=== PATIENT | female | born 1955 | race Caucasian/White ===

== ENCOUNTER → 2018-03-26 15:06 | Outpatient (CLI) | payer OTHER, SELFPAY ==
--- NOTE | 2018-03-26 15:07 | DI.MG.S_ITS ---
BILATERAL DIGITAL SCREENING MAMMOGRAM 3D/2D WITH CAD: 03/26/2018 CLINICAL: Routine screening. Family history of breast cancer. Comparison is made to exams dated: 03/24/2017 mammogram, 01/11/2016 mammogram, and 11/17/2014 mammogram - [facility]. There are scattered fibroglandular elements in both breasts. Current study was also evaluated with a Computer Aided Detection (CAD) system. No significant masses, calcifications, or other findings are seen in either breast. There has been no significant interval change. IMPRESSION: NEGATIVE There is no mammographic evidence of malignancy. A 1 year screening mammogram is recommended. This exam was interpreted at Station ID: [id number]. NOTE: For mammograms, a report in lay terms will be sent to the patient. Approximately 15% of breast malignancies will not be visualized mammographically. In the management of a palpable breast mass, a negative mammogram must not discourage biopsy of a clinically suspicious lesion. Electronically Signed By: Aggie castle/andrew:03/27/2018 09:38:15 letter sent: Normal Exam ACR BI-RADS Category 1: Negative 3341F
== END ==
PROVIDERS: PCP Family Medicine; Visit Provider Family Medicine
DX: Z12.31 Encounter for screening mammogram for malignant neoplasm of breast (principal); Z80.3 Family history of malignant neoplasm of breast
CPT/HCPCS: 77063; 77067

== ENCOUNTER → 2019-02-21 13:08 | Outpatient (CLI) | payer OTHER, SELFPAY ==
[2019-02-25 22:36] LABS: Fecal Immunochemical Test NOT DETECTED (NOT DETECTED)
== END ==
PROVIDERS: PCP Family Medicine; Visit Provider Family Medicine
DX: Z12.11 Encounter for screening for malignant neoplasm of colon (principal)
CPT/HCPCS: 82274

== ENCOUNTER → 2019-03-28 17:05 | Outpatient (CLI) | payer OTHER, SELFPAY ==
--- NOTE | 2019-03-28 17:07 | DI.MG.S_ITS ---
BILATERAL DIGITAL SCREENING MAMMOGRAM 3D/2D WITH CAD: 03/28/2019 CLINICAL: Routine screening. Family history of breast cancer. Comparison is made to exams dated: 03/26/2018 mammogram, 03/24/2017 mammogram, and 01/11/2016 mammogram - [facility]. There are scattered fibroglandular elements in both breasts. Current study was also evaluated with a Computer Aided Detection (CAD) system. No significant masses, calcifications, or other findings are seen in either breast. There has been no significant interval change. IMPRESSION: NEGATIVE There is no mammographic evidence of malignancy. A 1 year screening mammogram is recommended. This exam was interpreted at Station ID: [id number]. NOTE: For mammograms, a report in lay terms will be sent to the patient. Approximately 15% of breast malignancies will not be visualized mammographically. In the management of a palpable breast mass, a negative mammogram must not discourage biopsy of a clinically suspicious lesion. Electronically Signed By: Aggie castle/andrew:03/29/2019 07:19:46 letter sent: Normal Exam ACR BI-RADS Category 1: Negative 3341F
== END ==
PROVIDERS: PCP Family Medicine; Visit Provider Family Medicine
DX: Z12.31 Encounter for screening mammogram for malignant neoplasm of breast (principal); Z80.3 Family history of malignant neoplasm of breast
CPT/HCPCS: 77063; 77067

== ENCOUNTER → 2019-06-13 07:50 | Outpatient (CLI) | payer OTHER, SELFPAY ==
[2019-06-13 08:17] LABS: Add Manual Diff / Slide Review NO; Basophils Absolute Auto 100 /uL (0-100); Basophils Percent Auto 1.2 % (0-2); Eosinophils Absolute Auto 200 /uL (0-450); Eosinophils Percent Auto 3.5 % (2-4); Hematocrit 45.9 % (36-46); Hemoglobin 16.1 g/dL (12.0-16.0); Lymphocytes Absolute Auto 1700 /uL (1100-4500); Lymphocytes Percent Auto 30.6 % (25-40); Mean Corpuscular Hemoglobin 32.9 PG (26-34); Mean Corpuscular Volume 94.2 fL (80-100); Monocytes Absolute Auto 300 /uL (0-900); Monocytes Percent Auto 6.1 % (3-14); Neutrophils Absolute Auto 3300 /uL (1500-7000); Neutrophils Percent Auto 58.6 % (50-75); Platelet Count 262 X10^3/uL (150-400); Red Blood Cell Count 4.88 X10^6/uL (4.0-5.2); Red Cell Distribution Width 12.8 % (11.6-14.8); White Blood Cell Count 5.6 X10^3/uL (4.5-11.0)
[2019-06-13 08:53] LABS: Alanine Aminotransferase 29 IU/L (<35); Albumin 4.6 g/dL (3.5-5.0); Albumin Globulin Ratio 1.7 (1.0-2.8); Alkaline Phosphatase 60 U/L (38-126); Aspartate Aminotransferase 25 IU/L (14-36); BUN Creatinine Ratio 26.3 (6-22); Bilirubin Total 0.5 mg/dL (0.2-1.3); Blood Urea Nitrogen 21 mg/dL (7-17); Calcium 9.9 mg/dL (8.4-10.2); Carbon Dioxide 29 mmol/L (22-32); Chloride 101 mmol/L (98-107); Cholesterol 246 mg/dL (140-199); Estimated Glomerular Filt Rate > 60.0 mL/min (>60); Globulin 2.7 g/dL (1.7-4.1); Glucose 188 mg/dL (80-110); HDL Cholesterol 59 mg/dL (40-60); HEMOLYSIS < 15 (0-50); LDL Cholesterol Calculated 152 mg/dL (<100); Potassium 4.3 mmol/L (3.4-5.1); Sodium 139 mmol/L (137-145); Total Protein 7.3 g/dL (6.3-8.2); Triglycerides 176 mg/dL (35-150)
[2019-06-13 09:21] LABS: Thyroid Stimulating Hormone 1.55 uIU/mL (0.47-4.68)
[2019-06-14 10:17] LABS: Hemoglobin A1C% w Est Avg Glu 7.6 % (4.0-6.0)
== END ==
PROVIDERS: Family Medicine; PCP Family Medicine; Referring Provider Family Medicine; Visit Provider Family Medicine
DX: Z51.81 Encounter for therapeutic drug level monitoring (principal); Z13.220 Encounter for screening for lipoid disorders; Z13.29 Encounter for screening for other suspected endocrine disorder; I10 Essential (primary) hypertension; R73.01 Impaired fasting glucose
CPT/HCPCS: 36415; 80053; 80061; 83036; 84443; 85025

== ENCOUNTER → 2020-04-20 17:38 | Outpatient (CLI) | payer OTHER, SELFPAY ==
--- NOTE | 2020-04-20 | DI.MG.S_ITS ---
BILATERAL DIGITAL SCREENING MAMMOGRAM 3D/2D WITH CAD: 04/20/2020 CLINICAL: Routine screening. Family history of breast cancer. Comparison is made to exams dated: 03/28/2019 mammogram, 03/26/2018 mammogram, 03/24/2017 mammogram, 01/11/2016 mammogram, and 11/17/2014 mammogram - [facility]. There are scattered fibroglandular elements in both breasts. Current study was also evaluated with a Computer Aided Detection (CAD) system. No significant masses, calcifications, or other findings are seen in either breast. There has been no significant interval change. IMPRESSION: NEGATIVE There is no mammographic evidence of malignancy. A 1 year screening mammogram is recommended. This exam was interpreted at Station ID: [id number]. NOTE: For mammograms, a report in lay terms will be sent to the patient. Approximately 15% of breast malignancies will not be visualized mammographically. In the management of a palpable breast mass, a negative mammogram must not discourage biopsy of a clinically suspicious lesion. Electronically Signed By: Dave nova/andrew:04/21/2020 07:42:49 letter sent: Normal Exam ACR BI-RADS Category 1: Negative 3341F
== END ==
PROVIDERS: PCP Family Medicine; Referring Provider Family Medicine; Visit Provider Family Medicine
DX: Z12.31 Encounter for screening mammogram for malignant neoplasm of breast (principal); Z80.3 Family history of malignant neoplasm of breast
CPT/HCPCS: 77063; 77067

== ENCOUNTER → 2020-08-14 15:37 | Outpatient (CLI) | payer OTHER, SELFPAY ==
[2020-08-14 16:11] LABS: Add Manual Diff / Slide Review NO; Basophils Absolute Auto 100 /uL (0-100); Basophils Percent Auto 1.2 % (0-2); Eosinophils Absolute Auto 200 /uL (0-450); Eosinophils Percent Auto 2.7 % (2-4); Hematocrit 43.6 % (36-46); Hemoglobin 15.2 g/dL (12.0-16.0); Lymphocytes Absolute Auto 2400 /uL (1100-4500); Lymphocytes Percent Auto 41.9 % (25-40); Mean Corpuscular HGB Conc 34.8 % (30-36); Mean Corpuscular Hemoglobin 32.3 PG (26-34); Mean Corpuscular Volume 92.8 fL (80-100); Monocytes Absolute Auto 300 /uL (0-900); Monocytes Percent Auto 5.1 % (3-14); Neutrophils Absolute Auto 2900 /uL (1500-7000); Neutrophils Percent Auto 49.1 % (50-75); Platelet Count 263 X10^3/uL (150-400); Red Blood Cell Count 4.69 X10^6/uL (4.0-5.2); Red Cell Distribution Width 12.4 % (11.6-14.8); White Blood Cell Count 5.8 X10^3/uL (4.5-11.0)
[2020-08-14 16:25] LABS: Alanine Aminotransferase 32 IU/L (<35); Albumin 4.3 g/dL (3.5-5.0); Albumin Globulin Ratio 1.5 (1.0-2.8); Alkaline Phosphatase 67 U/L (38-126); Aspartate Aminotransferase 26 IU/L (14-36); BUN Creatinine Ratio 19.4 (6-22); Bilirubin Total 0.4 mg/dL (0.2-1.3); Blood Urea Nitrogen 13 mg/dL (7-17); Calcium 9.4 mg/dL (8.4-10.2); Carbon Dioxide 29 mmol/L (22-32); Chloride 98 mmol/L (98-107); Cholesterol 234 mg/dL (140-199); Estimated Glomerular Filt Rate > 60.0 mL/min (>60); Globulin 2.8 g/dL (1.7-4.1); Glucose 190 mg/dL (80-110); HDL Cholesterol 55 mg/dL (40-60); HEMOLYSIS < 15 (0-50); LDL Cholesterol Calculated 140 mg/dL (<100); Potassium 3.2 mmol/L (3.4-5.1); Sodium 135 mmol/L (137-145); Total Protein 7.1 g/dL (6.3-8.2); Triglycerides 195 mg/dL (35-150)
[2020-08-14 16:28] LABS: Hemoglobin A1C% w Est Avg Glu 9.4 % (4.0-6.0)
== END ==
PROVIDERS: PCP Family Medicine; Referring Provider Family Medicine; Visit Provider Family Medicine
DX: E11.9 Type 2 diabetes mellitus without complications (principal); I10 Essential (primary) hypertension
CPT/HCPCS: 36415; 80053; 80061; 83036; 85025

== ENCOUNTER → 2020-12-21 16:54 | Outpatient (CLI) | payer MEDICARE, OTHER, SELFPAY ==
[2020-12-21 17:43] LABS: Alanine Aminotransferase 30 IU/L (<35); Albumin 4.6 g/dL (3.5-5.0); Albumin Globulin Ratio 1.8 (1.0-2.8); Alkaline Phosphatase 60 U/L (38-126); Aspartate Aminotransferase 28 IU/L (14-36); BUN Creatinine Ratio 21.5 (6-22); Bilirubin Total 0.4 mg/dL (0.2-1.3); Blood Urea Nitrogen 14 mg/dL (7-17); Calcium 9.6 mg/dL (8.4-10.2); Carbon Dioxide 28 mmol/L (22-32); Chloride 101 mmol/L (98-107); Cholesterol 209 mg/dL (140-199); Estimated Glomerular Filt Rate > 60.0 mL/min (>60); Globulin 2.6 g/dL (1.7-4.1); Glucose 125 mg/dL (80-110); HDL Cholesterol 60 mg/dL (40-60); HEMOLYSIS < 15 (0-50); LDL Cholesterol Calculated 103 mg/dL (<100); Potassium 3.5 mmol/L (3.4-5.1); Sodium 136 mmol/L (137-145); Total Protein 7.2 g/dL (6.3-8.2); Triglycerides 229 mg/dL (35-150)
[2020-12-21 18:33] LABS: Hemoglobin A1C% w Est Avg Glu 6.9 % (4.0-6.0)
== END ==
PROVIDERS: PCP Family Medicine; Referring Provider Family Medicine; Visit Provider Family Medicine
DX: E11.9 Type 2 diabetes mellitus without complications (principal); I10 Essential (primary) hypertension; E78.2 Mixed hyperlipidemia
CPT/HCPCS: 36415; 80053; 80061; 83036

== ENCOUNTER → 2021-04-21 16:08 | Outpatient (CLI) | payer MEDICARE, OTHER, SELFPAY ==
--- NOTE | 2021-04-21 | DI.MG.S_ITS ---
BILATERAL DIGITAL SCREENING MAMMOGRAM 3D/2D WITH CAD: 04/21/2021 CLINICAL: Routine screening. Family history of breast cancer. Comparison is made to exams dated: 04/20/2020 mammogram, 03/28/2019 mammogram, and 03/26/2018 mammogram - [facility]. There are scattered fibroglandular elements in both breasts. Current study was also evaluated with a Computer Aided Detection (CAD) system. No significant masses, calcifications, or other findings are seen in either breast. There has been no significant interval change. IMPRESSION: NEGATIVE There is no mammographic evidence of malignancy. A 1 year screening mammogram is recommended. This exam was interpreted at Station ID: [id number]. NOTE: For mammograms, a report in lay terms will be sent to the patient. Approximately 15% of breast malignancies will not be visualized mammographically. In the management of a palpable breast mass, a negative mammogram must not discourage biopsy of a clinically suspicious lesion. Electronically Signed By: Roman chauhan/andrew:04/22/2021 11:21:18 letter sent: Normal Exam ACR BI-RADS Category 1: Negative 3341F
== END ==
PROVIDERS: PCP Family Medicine; Referring Provider Family Medicine; Visit Provider Family Medicine
DX: Z12.31 Encounter for screening mammogram for malignant neoplasm of breast (principal); Z80.3 Family history of malignant neoplasm of breast
CPT/HCPCS: 77063; 77067

== ENCOUNTER → 2021-07-31 08:28 | Outpatient (CLI) | payer MEDICARE, OTHER, SELFPAY ==
[2021-07-31 10:24] LABS: Hemoglobin A1C% w Est Avg Glu 7.2 % (4.0-6.0)
[2021-07-31 10:29] LABS: Alanine Aminotransferase 21 IU/L (<35); Albumin 4.3 g/dL (3.5-5.0); Albumin Globulin Ratio 1.7 (1.0-2.8); Alkaline Phosphatase 36 U/L (38-126); Aspartate Aminotransferase 24 IU/L (14-36); BUN Creatinine Ratio 20.3 (6-22); Bilirubin Total 0.6 mg/dL (0.2-1.3); Blood Urea Nitrogen 14 mg/dL (7-17); Calcium 8.9 mg/dL (8.4-10.2); Carbon Dioxide 26 mmol/L (22-32); Chloride 102 mmol/L (98-107); Cholesterol 193 mg/dL (140-199); Estimated Glomerular Filt Rate > 60 mL/min (>60); Globulin 2.6 g/dL (1.7-4.1); Glucose 148 mg/dL (80-110); HDL Cholesterol 55 mg/dL (40-60); HEMOLYSIS 47 (0-50); LDL Cholesterol Calculated 109 mg/dL (<100); Potassium 3.9 mmol/L (3.4-5.1); Sodium 139 mmol/L (137-145); Total Protein 6.9 g/dL (6.3-8.2); Triglycerides 147 mg/dL (35-150)
== END ==
PROVIDERS: PCP Family Medicine; Referring Provider Family Medicine; Visit Provider Family Medicine
DX: E11.9 Type 2 diabetes mellitus without complications (principal); I10 Essential (primary) hypertension; E78.2 Mixed hyperlipidemia
CPT/HCPCS: 36415; 80053; 80061; 83036

== ENCOUNTER → 2022-02-07 14:11 | Outpatient (CLI) | payer MEDICARE, OTHER, SELFPAY ==
[2022-02-07 15:06] LABS: Add Manual Diff / Slide Review NO; Basophils Absolute Auto 100 /uL (0-100); Basophils Percent Auto 0.7 % (0-2); Eosinophils Absolute Auto 200 /uL (0-450); Eosinophils Percent Auto 2.4 % (2-4); Hematocrit 45.9 % (36-46); Hemoglobin 15.6 g/dL (12.0-16.0); Lymphocytes Absolute Auto 1800 /uL (1100-4500); Lymphocytes Percent Auto 18.5 % (25-40); Mean Corpuscular Hemoglobin 31.9 PG (26-34); Mean Corpuscular Volume 93.9 fL (80-100); Monocytes Absolute Auto 500 /uL (0-900); Monocytes Percent Auto 5.6 % (3-14); Neutrophils Absolute Auto 6900 /uL (1500-7000); Neutrophils Percent Auto 72.8 % (50-75); Platelet Count 247 X10^3/uL (150-400); Red Blood Cell Count 4.88 X10^6/uL (4.0-5.2); White Blood Cell Count 9.5 X10^3/uL (4.5-11.0)
[2022-02-07 15:20] LABS: Alanine Aminotransferase 21 IU/L (<35); Albumin 4.4 g/dL (3.5-5.0); Albumin Globulin Ratio 1.4 (1.0-2.8); Alkaline Phosphatase 64 U/L (38-126); Aspartate Aminotransferase 18 IU/L (14-36); BUN Creatinine Ratio 15.9 (6-22); Bilirubin Total 0.5 mg/dL (0.2-1.3); Blood Urea Nitrogen 10 mg/dL (7-17); Calcium 9.3 mg/dL (8.4-10.2); Carbon Dioxide 32 mmol/L (22-32); Chloride 98 mmol/L (98-107); Cholesterol 205 mg/dL (140-199); Estimated Glomerular Filt Rate > 60 mL/min (>60); Globulin 3.1 g/dL (1.7-4.1); Glucose 144 mg/dL (80-110); HDL Cholesterol 59 mg/dL (40-60); HEMOLYSIS < 15 (0-50); LDL Cholesterol Calculated 112 mg/dL (<100); Sodium 136 mmol/L (137-145); Total Protein 7.5 g/dL (6.3-8.2); Triglycerides 170 mg/dL (35-150)
[2022-02-07 15:27] LABS: Hemoglobin A1C% w Est Avg Glu 6.9 % (4.0-6.0)
== END ==
PROVIDERS: PCP Family Medicine; Referring Provider Family Medicine; Visit Provider Family Medicine
DX: E11.9 Type 2 diabetes mellitus without complications (principal); I10 Essential (primary) hypertension; E78.2 Mixed hyperlipidemia
CPT/HCPCS: 36415; 80053; 80061; 83036; 85025

== ENCOUNTER → 2022-04-28 15:52 | Outpatient (CLI) | payer MEDICARE, OTHER, SELFPAY ==
--- NOTE | 2022-04-28 15:53 | DI.MG.S_ITS ---
BILATERAL DIGITAL SCREENING MAMMOGRAM 3D/2D WITH CAD: 04/28/2022 CLINICAL: Routine screening. Family history of breast cancer. Comparison is made to exams dated: 04/21/2021 mammogram, 04/20/2020 mammogram, and 03/28/2019 mammogram - [facility]. There are scattered areas of fibroglandular density in both breasts (category b / 25%-50% glandular tissue). Current study was also evaluated with a Computer Aided Detection (CAD) system. No significant masses, calcifications, or other findings are seen in either breast. There has been no significant interval change. IMPRESSION: NEGATIVE There is no mammographic evidence of malignancy. A 1 year screening mammogram is recommended. Based on the Tyrer Cuzick model (a risk assessment model) the patient's lifetime risk is 9.5% and her 10 year risk is 4.8%. According to the ACR, ACS, and NCCN guidelines, an annual breast MRI exam along with mammogram is recommended if the patient's lifetime risk is 20% or greater. This exam was interpreted at Station ID: [id number]. NOTE: For mammograms, a report in lay terms will be sent to the patient. Approximately 15% of breast malignancies will not be visualized mammographically. In the management of a palpable breast mass, a negative mammogram must not discourage biopsy of a clinically suspicious lesion. Electronically Signed By: Naeem martinez/andrew:04/29/2022 09:02:09 letter sent: Normal Exam ACR BI-RADS Category 1: Negative 3341F
== END ==
PROVIDERS: PCP Family Medicine; Referring Provider Family Medicine; Visit Provider Family Medicine
DX: Z12.31 Encounter for screening mammogram for malignant neoplasm of breast (principal); Z80.3 Family history of malignant neoplasm of breast
CPT/HCPCS: 77063; 77067

== ENCOUNTER → 2023-02-17 14:51 | Outpatient (CLI) | payer MEDICARE, OTHER, SELFPAY ==
[2023-02-17 15:34] LABS: Add Manual Diff / Slide Review NO; Basophils Absolute Auto 100 /uL (0-100); Basophils Percent Auto 0.9 % (0-2); Eosinophils Absolute Auto 200 /uL (0-450); Eosinophils Percent Auto 3.1 % (2-4); Hematocrit 41.3 % (36-46); Hemoglobin 14.3 g/dL (12.0-16.0); Lymphocytes Absolute Auto 2500 /uL (1100-4500); Lymphocytes Percent Auto 41.5 % (25-40); Mean Corpuscular HGB Conc 34.6 % (30-36); Mean Corpuscular Hemoglobin 32.5 PG (26-34); Mean Corpuscular Volume 93.9 fL (80-100); Monocytes Absolute Auto 400 /uL (0-900); Monocytes Percent Auto 6.6 % (3-14); Neutrophils Absolute Auto 2900 /uL (1500-7000); Neutrophils Percent Auto 47.9 % (50-75); Platelet Count 296 X10^3/uL (150-400); Red Blood Cell Count 4.39 X10^6/uL (4.0-5.2); Red Cell Distribution Width 13.3 % (11.6-14.8); White Blood Cell Count 6.1 X10^3/uL (4.5-11.0)
[2023-02-17 15:58] LABS: Hemoglobin A1C% w Est Avg Glu 7.5 % (4.0-6.0)
[2023-02-17 16:07] LABS: Alanine Aminotransferase 18 IU/L (<35); Albumin 4.3 g/dL (3.5-5.0); Albumin Globulin Ratio 1.9 (1.0-2.8); Alkaline Phosphatase 62 U/L (38-126); Aspartate Aminotransferase 21 IU/L (14-36); BUN Creatinine Ratio 22.5 (6-22); Bilirubin Total 0.6 mg/dL (0.2-1.3); Blood Urea Nitrogen 16 mg/dL (7-17); Calcium 9.6 mg/dL (8.4-10.2); Carbon Dioxide 27 mmol/L (22-32); Chloride 99 mmol/L (98-107); Cholesterol 211 mg/dL (140-199); Estimated Glomerular Filt Rate > 60 mL/min (>60); Globulin 2.3 g/dL (1.7-4.1); Glucose 114 mg/dL (80-110); HDL Cholesterol 81 mg/dL (40-60); HEMOLYSIS < 15 (0-50); LDL Cholesterol Calculated 103 mg/dL (<100); Potassium 3.9 mmol/L (3.4-5.1); Sodium 134 mmol/L (137-145); Total Protein 6.6 g/dL (6.3-8.2); Triglycerides 137 mg/dL (35-150)
== END ==
PROVIDERS: PCP Family Medicine; Referring Provider Family Medicine; Visit Provider Family Medicine
DX: Z00.00 Encounter for general adult medical examination without abnormal findings (principal); I10 Essential (primary) hypertension; E11.9 Type 2 diabetes mellitus without complications; E78.2 Mixed hyperlipidemia
CPT/HCPCS: 36415; 80053; 80061; 83036; 85025

== ENCOUNTER → 2023-04-14 14:44 | Outpatient (CLI) | payer MEDICARE, OTHER, SELFPAY ==
--- NOTE | 2023-04-14 14:47 | DI.RAD.S_ITS ---
Bone Density Report Name: JANNETH MURPHY Age: 67 Sex: Female Ethnicity: White Date of : 1955 Indication: postmenopausal; screening for osteoporosis; Referring Provider: POLO CARLISLE Study: Bone densitometry was performed. Exam Date: April 14, 2023 Accession number: [id number] Bone Density: Region BMD T-score Z-score Classification AP Spine(L1-L4) 1.048 0.0 1.9 Normal Femoral Neck (Left) 0.672 -1.6 0.1 Osteopenia Total Hip (Left) 0.697 -2.0 -0.6 Osteopenia Femoral Neck (Right) 0.700 -1.3 0.3 Osteopenia Total Hip (Right) 0.731 -1.7 -0.4 Osteopenia Total Hip Mean 0.714 -1.9 -0.5 Osteopenia World Health Organization criteria for BMD impression classify patients as: Normal (T-score at or above -1.0), Osteopenia (T-score between -1.0 and -2.5), or Osteoporosis (T-score at or below -2.5). 10-year Fracture Risk(1): Major Osteoporotic Fracture 8.3% Hip Fracture 1.8% Reported Risk Factors: [place] (), Neck BMD=0.672, BMI=19.3, smoking (1) FRAX(R) Version 3.08. Fracture probability calculated for an untreated patient. Fracture probability may be lower if the patient has received treatment. Impression: The patient has low bone mass, based on the Left Total Hip T-score. The patient has an estimated ten-year risk of hip fracture of 1.8% and an estimated ten-year risk of major fracture of 8.3%, based on the WHO FRAX algorithm. The patient has risk factors, including: smoking. Discussion: BONE DENSITY IS LOW AT ONE OR MORE SKELETAL SITES. This patient's lowest T-score is low at one or more skeletal sites. It meets the World Health Organization's (WHO) criteria for low bone mass (T-score between -1.0 and -2.5). The patient's 10-year risk of fracture as calculated by FRAX is less than the threshold where pharmacological therapy is recommended by the National Osteoporosis Foundation (NOF). However, all treatment decisions require clinical judgment and consideration of individual patient factors, including patient preferences, comorbidities, previous drug use, risk factors not captured in the FRAX model (e.g., frailty, falls, vitamin D deficiency, increased bone turnover, interval significant decline in bone density) and possible under or overestimation of fracture risk by FRAX. The patient should follow a healthful lifestyle (good nutrition with adequate calcium and vitamin D, and appropriate weight-bearing exercise). Follow-Up: Consider repeating this study in 2 to 3 years to reassess this patient's status, or sooner if there is some new clinical indication. Reported by: ROCKY CAMPOVERDE M.D. on 04/14/2023 4:58:00 PM.
[2023-04-17 16:47] LABS: Fecal Immunochemical Test Negative (Negative)
== END ==
PROVIDERS: PCP Family Medicine; Referring Provider Physician Assistant; Visit Provider Physician Assistant
DX: Z78.0 Asymptomatic menopausal state (principal); Z12.11 Encounter for screening for malignant neoplasm of colon; M85.88 Other specified disorders of bone density and structure, other site
CPT/HCPCS: 77080; 82274

== ENCOUNTER → 2023-05-02 14:41 | Outpatient (CLI) | payer MEDICARE, OTHER, SELFPAY ==
--- NOTE | 2023-05-02 14:43 | DI.MG.S_ITS ---
BILATERAL DIGITAL SCREENING MAMMOGRAM 3D/2D WITH CAD: 05/02/2023 CLINICAL: Routine screening. Family history of breast cancer. Comparison is made to exams dated: 04/28/2022 mammogram, 04/21/2021 mammogram, 04/20/2020 mammogram, 03/28/2019 mammogram, and 03/26/2018 mammogram - [facility]. There are scattered areas of fibroglandular density in both breasts (category b / 25%-50% glandular tissue). Current study was also evaluated with a Computer Aided Detection (CAD) system. No significant masses, calcifications, or other findings are seen in either breast. There has been no significant interval change. IMPRESSION: NEGATIVE There is no mammographic evidence of malignancy. A 1 year screening mammogram is recommended. Based on the Tyrer Cuzick model (a risk assessment model) the patient's lifetime risk is 9.0% and her 10 year risk is 4.8%. According to the ACR, ACS, and NCCN guidelines, an annual breast MRI exam along with mammogram is recommended if the patient's lifetime risk is 20% or greater. This exam was interpreted at Station ID: [id number]. NOTE: For mammograms, a report in lay terms will be sent to the patient. Approximately 15% of breast malignancies will not be visualized mammographically. In the management of a palpable breast mass, a negative mammogram must not discourage biopsy of a clinically suspicious lesion. Electronically Signed By: Ara Juan M.D., PH.D darcy/andrew:05/02/2023 16:59:03 letter sent: Normal Exam ACR BI-RADS Category 1: Negative 3341F
== END ==
PROVIDERS: PCP Family Medicine; Referring Provider Family Medicine; Visit Provider Family Medicine
DX: Z12.31 Encounter for screening mammogram for malignant neoplasm of breast (principal); Z80.3 Family history of malignant neoplasm of breast; R92.323 Mammographic fibroglandular density, bilateral breasts
CPT/HCPCS: 77063; 77067

== ENCOUNTER → 2023-05-24 14:38 | Outpatient (CLI) | payer MEDICARE, OTHER, SELFPAY ==
[2023-05-24 15:44] LABS: Hemoglobin A1C% w Est Avg Glu 6.9 % (4.0-6.0)
[2023-05-24 16:01] LABS: Alanine Aminotransferase 20 IU/L (<35); Albumin 4.5 g/dL (3.5-5.0); Albumin Globulin Ratio 1.7 (1.0-2.8); Alkaline Phosphatase 62 U/L (38-126); Aspartate Aminotransferase 23 IU/L (14-36); BUN Creatinine Ratio 32.4 (6-22); Bilirubin Total 0.6 mg/dL (0.2-1.3); Blood Urea Nitrogen 22 mg/dL (7-17); Calcium 9.5 mg/dL (8.4-10.2); Carbon Dioxide 25 mmol/L (22-32); Chloride 96 mmol/L (98-107); Estimated Glomerular Filt Rate > 60 mL/min (>60); Globulin 2.6 g/dL (1.7-4.1); Glucose 136 mg/dL (80-110); HEMOLYSIS < 15 (0-50); Potassium 3.5 mmol/L (3.4-5.1); Sodium 133 mmol/L (137-145); Total Protein 7.1 g/dL (6.3-8.2)
[2023-05-24 16:51] LABS: Vitamin D 25 Hydroxy (D3) 17.2 ng/mL (30.0-100.0)
== END ==
PROVIDERS: PCP Family Medicine; Referring Provider Family Medicine; Visit Provider Family Medicine
DX: E11.9 Type 2 diabetes mellitus without complications (principal); M85.80 Other specified disorders of bone density and structure, unspecified site; I10 Essential (primary) hypertension; Z78.0 Asymptomatic menopausal state
CPT/HCPCS: 36415; 80053; 82306; 83036

== ENCOUNTER → 2023-11-22 14:51 | Outpatient (CLI) | payer MEDICARE, OTHER, SELFPAY ==
[2023-11-22 16:56] LABS: Add Manual Diff / Slide Review NO; Basophils Absolute Auto 100 /uL (0-100); Basophils Percent Auto 0.9 % (0-2); Eosinophils Absolute Auto 200 /uL (0-450); Eosinophils Percent Auto 3.1 % (2-4); Hemoglobin 14.4 g/dL (12.0-16.0); Lymphocytes Absolute Auto 2400 /uL (1100-4500); Lymphocytes Percent Auto 39.2 % (25-40); Mean Corpuscular HGB Conc 35.1 % (30-36); Mean Corpuscular Hemoglobin 33.1 PG (26-34); Mean Corpuscular Volume 94.1 fL (80-100); Monocytes Absolute Auto 400 /uL (0-900); Monocytes Percent Auto 6.6 % (3-14); Neutrophils Absolute Auto 3000 /uL (1500-7000); Neutrophils Percent Auto 50.2 % (50-75); Platelet Count 292 X10^3/uL (150-400); Red Blood Cell Count 4.35 X10^6/uL (4.0-5.2)
[2023-11-22 17:24] LABS: Alanine Aminotransferase 19 IU/L (<35); Albumin 4.3 g/dL (3.5-5.0); Alkaline Phosphatase 62 U/L (38-126); Aspartate Aminotransferase 23 IU/L (14-36); BUN Creatinine Ratio 22.2 (6-22); Bilirubin Total 0.6 mg/dL (0.2-1.3); Blood Urea Nitrogen 16 mg/dL (7-17); Calcium 9.3 mg/dL (8.4-10.2); Carbon Dioxide 24 mmol/L (22-32); Chloride 102 mmol/L (98-107); Cholesterol 197 mg/dL (140-199); Estimated Glomerular Filt Rate > 60 mL/min (>60); Globulin 2.1 g/dL (1.7-4.1); Glucose 111 mg/dL (80-110); HDL Cholesterol 85 mg/dL (40-60); HEMOLYSIS < 15 (0-50); LDL Cholesterol Calculated 90 mg/dL (<100); Potassium 3.8 mmol/L (3.4-5.1); Sodium 134 mmol/L (137-145); Total Protein 6.4 g/dL (6.3-8.2); Triglycerides 108 mg/dL (35-150)
[2023-11-22 17:29] LABS: Vitamin D 25 Hydroxy (D3) 31.2 ng/mL (30.0-100.0)
[2023-11-22 18:03] LABS: Creatinine Urine Random 96.02 mg/dL
[2023-11-22 18:08] LABS: Microalbumin Urine Random 0.9 mg/dL (0-1.6)
== END ==
PROVIDERS: PCP Family Medicine; Referring Provider Family Medicine; Visit Provider Family Medicine
DX: E11.9 Type 2 diabetes mellitus without complications (principal); E78.2 Mixed hyperlipidemia
CPT/HCPCS: 36415; 80053; 80061; 82043; 82306; 82570; 85025

== ENCOUNTER 2024-04-13 17:53 | Inpatient (IN) | payer MEDICARE, OTHER, SELFPAY ==
[2024-04-13 18:10] VITALS: BP 123/60; PULSE 105; RESP 16; TEMP 37.1; O2SAT 98; BMI 19.3
--- NOTE | 2024-04-13 19:25 | PC.NURSE ---
c/o bilater mcgovern pain denies any injury no apparent injuries noted no redness or swelling, also c/o fatigue
--- NOTE | 2024-04-13 22:10 | ED_ITS ---
HPI - Extremity Problem General Chief complaint: Extremity Problem,Nontraumatic Stated complaint: pain in lower legs Time Seen by Provider: 04/13/24 22:10 Source: patient Mode of arrival: Ambulatory History of Present Illness HPI Narrative: 68-year-old female complains of bilateral anterior mcgovern discomfort since new year's now for the 4th day, no injury, no rash, no posterior pain to the calf, no footwear or new activities, no skin changes or rash or redness. She has no knee area pain or discomfort or effusion symptoms. No pain in her back. No similar symptoms prior. She also has similar duration of dry cough, eating less, feels that she might be dehydrated. She denies fevers or chills. She denies frequency of urination, painful urination, blood in urine. She denies abdominal discomfort, flank pain. She admits to recent cough but denies chest pain or shortness of breath. She is tried Tylenol for the anterior mcgovern discomfort, she has not tried any other therapies. Related Data Previous Rx's Medication Instructions Recorded metformin 500 mg tablet,extended See Rx Instructions .Route 04/25/23 release 24 hr .COMPLEX #360 tabs metoprolol tartrate 50 See Rx Instructions .Route 04/25/23 mg-hydrochlorothiazide 25 mg tablet .COMPLEX #90 tabs Allergies Allergy/AdvReac Type Severity Reaction Status Date / Time atorvastatin [From Lipitor] Allergy myalgia Verified 05/31/23 15:04 Patient History Medical History (Updated 04/14/24 @ 00:47 by Frank Moon MD) Vitamin D deficiency Acquired hammertoes of both feet Osteopenia after menopause At risk for foot problem Sacral region somatic dysfunction Somatic dysfunction of lower extremity Piriformis syndrome of right side Acute right hip pain Type 2 diabetes mellitus without complication Abnormal Pap smear of cervix (~1994) Hypertension Surgical History No history of previous surgery Family History Father No problems noted. Mother No problems noted. Sister Cancer Grandmother Diabetes mellitus Social History household members: spouse Smoking Status: Current every day smoker Tobacco: How many years used: 20 alcohol intake: current Smoking Status: Current every day smoker Exam Narrative Exam Narrative: GENERAL: Well-developed patient, in mild distress. Frequent coughing noted HEAD: Atraumatic. Normocephalic. EYES: Pupils equal round and reactive. Extraocular motions intact. No scleral icterus. No injection or drainage. ENT: Nose without bleeding, purulent drainage. Throat without erythema, tonsillar hypertrophy or exudate. Airway patent. NECK: Trachea midline. Non tender CARDIOVASCULAR: Fast rate with regular rhythm, without obvious murmurs, gallops, or rubs. RESPIRATORY: Clear to auscultation. Breath sounds equal bilaterally. No wheezes, rales, or rhonchi. GASTROINTESTINAL: Abdomen soft, non-tender, nondistended. EXTREMITIES: Bilateral anterior mcgovern region of discomfort shows no obvious swelling or redness or skin lesions, no tenderness on palpation, no discomfort with full range of motion flexion and extension at ankle. No lower extremity edema. No gross deformities. BACK: Nontender without deformity or crepitance. No flank tenderness. NEURO: AOx3. Motor functions grossly nonfocal SKIN: No rash or erythema of visible areas Initial Vital Signs Initial Vital Signs: Vital Signs Temperature 98.8 F 04/13/24 18:10 Pulse Rate 105 H 04/13/24 18:10 Respiratory Rate 16 04/13/24 18:10 Blood Pressure 123/60 04/13/24 18:10 Pulse Oximetry 98 04/13/24 18:10 Oxygen Delivery Method Room Air 04/13/24 18:10 Course Orders Ordered: ED Orders 04/13/24 22:26 XR chest 2V Stat EKG-12 Lead Stat 04/13/24 22:57 CBC Auto Diff [Complete Blood Count AUTO DIFF] Stat CMP [Comprehensive Metabolic Panel] Stat Lactate (Lactic Acid) Stat Magnesium Stat 04/13/24 23:15 Covid-19 + FLU A/B + RSV - PCR Stat 04/14/24 00:18 Urinalysis and Microscopic Stat 04/14/24 00:55 Blood Culture Stat Acetaminophen (Acetaminophen 325 Mg Tablet) 650 mg PO Q6H PRN PRN Reason: Fever/Mild Pain (1-3) Hydrocodone Bitart/Acetaminophen (Hydrocodone/Acet 5/325 Tablet) 1 tab PO Q4H PRN PRN Reason: Pain, Moderate (4-6) Heparin Sodium (Porcine) (Heparin 5,000 Unit/Ml Vial) 5,000 unit SUBCUT BID LAMINE Sodium Chloride (Normal Saline 0.9%) 1,000 mls @ 75 mls/hr IV CONT LAMINE Last Admin: 04/14/24 02:40 Dose: 75 mls/hr Documented By: Ceftriaxone Sodium 1,000 mg/ (Sodium Chloride) 100 mls @ 200 mls/hr IV BEDTIME LAMINE Doxycycline Hyclate 100 mg/ (Sodium Chloride) 100 mls @ 100 mls/hr IV Q12H LAMINE Dextrose (D10w) 100 mls @ 999 mls/hr IV PRN PRN PRN Reason: Hypoglycemia Insulin Glargine (Insulin Glargine 100 Unit/Ml 3ml Pen) 20 unit SUBCUT 0800 LAMINE Insulin Human Lispro (Insulin Lispro 100 Unit/Ml 3ml Vial) 0 unit SUBCUT ACHS LAMINE; Protocol Naloxone HCl (Naloxone 0.4 Mg/Ml Vial) 0.2 mg IV Q2MIN PRN PRN Reason: Opiate Reversal Ondansetron HCl (Ondansetron 4 Mg/2 Ml Inj) 4 mg IV Q8HR PRN PRN Reason: Nausea And Vomiting Discontinued Medications Doxycycline Hyclate (Doxycycline Hyclate 100 Mg Tablet) 100 mg PO NOW ONE Stop: 04/14/24 00:35 Last Admin: 04/14/24 01:20 Dose: 100 mg Documented By: SYDNI Sodium Chloride (Normal Saline 0.9%) 1,000 mls @ 1,000 mls/hr IV BOLUS ONE Stop: 04/13/24 23:24 Last Infusion: 04/13/24 23:57 Dose: Infused Documented By: Admin: 04/13/24 22:46 Dose: 1,000 mls/hr Documented By: SYDNI Magnesium Sulfate (Magnesium Sulfate) 2 gm in 50 mls @ 150 mls/hr IV NOW ONE Stop: 04/13/24 23:58 Last Infusion: 04/14/24 00:18 Dose: Infused Documented By: SYDNI Co-signed By: DEMARCUS Admin: 04/13/24 23:53 Dose: 150 mls/hr Documented By: SYDNI Co-signed By: DEMARCUS Ceftriaxone Sodium 1,000 mg/ (Sodium Chloride) 100 mls @ 200 mls/hr IV NOW ONE Stop: 04/14/24 00:35 Last Infusion: 04/14/24 01:57 Dose: Infused Documented By: Admin: 04/14/24 01:21 Dose: 200 mls/hr Documented By: SYDNI POTASSIUM CHLORIDE IN WATER (Potassium Cl 10 Meq/100 Ml Nohemi) 10 meq in 100 mls @ 100 mls/hr IV Q1H LAMINE Stop: 04/14/24 02:44 Last Infusion: 04/14/24 01:57 Dose: 100 mls/hr Documented By: Admin: 04/14/24 01:51 Dose: 100 mls/hr Documented By: Infusion: 04/14/24 01:51 Dose: Infused Documented By: Admin: 04/14/24 01:01 Dose: 100 mls/hr Documented By: SYDNI Sodium Chloride (Normal Saline 0.9%) 1,000 mls @ 1,000 mls/hr IV BOLUS ONE Stop: 04/14/24 01:36 Last Infusion: 04/14/24 01:58 Dose: 1,000 mls/hr Documented By: Admin: 04/14/24 00:58 Dose: 1,000 mls/hr Documented By: SYDNI Ketorolac Tromethamine (Ketorolac 30 Mg/Ml Vial) 15 mg IV NOW ONE Stop: 04/13/24 22:25 Last Admin: 04/13/24 22:45 Dose: 15 mg Documented By: SYDNI Potassium Chloride (Potassium Chloride 20 Meq/15 Ml Udc) 40 meq PO NOW ONE Stop: 04/13/24 23:36 Last Admin: 04/13/24 23:51 Dose: 40 meq Documented By: SYDNI Potassium Chloride (Potassium Chloride 20 Meq/15 Ml Udc) 40 meq PO NOW ONE Stop: 04/14/24 05:01 Vital Signs Vital signs: Vital Signs - 8 hr 04/13/24 22:46 04/13/24 22:58 04/13/24 22:58 Pulse Rate 128 H 126 H Blood Pressure 107/55 L Pulse Oximetry 94 93 Oxygen Delivery Method 04/13/24 23:00 04/13/24 23:30 04/13/24 23:30 Pulse Rate 125 H 115 H Blood Pressure 96/51 L Pulse Oximetry 95 94 Oxygen Delivery Method 04/14/24 00:00 04/14/24 00:00 04/14/24 00:04 Pulse Rate 115 H 109 H Blood Pressure 88/55 L Pulse Oximetry 94 93 Oxygen Delivery Method Room Air 04/14/24 00:04 Pulse Rate Blood Pressure 91/55 L Pulse Oximetry Oxygen Delivery Method MDM - Extremity (Nontraumatic) Lab Data 04/14/24 04:25 04/13/24 22:57 Labs: Lab Results 04/13/24 04/13/24 04/14/24 Range/Units 22:57 23:15 00:18 WBC 27.2 H (4.5-11.0) X10^3/uL RBC 4.43 (4.0-5.2) X10^6/uL Hgb 14.1 (12.0-16.0) g/dL Hct 41.5 (36-46) % MCV 93.6 (80-100) fL MCH 31.7 (26-34) PG MCHC 33.9 (30-36) % RDW 12.9 (11.6-14.8) % Plt Count 336 (150-400) X10^3/uL Neut % (Auto) Not Reportable Lymph % (Auto) Not Reportable [place] % (Auto) Not Reportable Eos % (Auto) Not Reportable Baso % (Auto) Not Reportable Lymph # (Auto) Not Reportable [place] # (Auto) Not Reportable Baso # (Auto) Not Reportable Total Counted 100 Seg Neutrophils % 86.0 H (38-70) % Band Neutrophils % 4.0 (3-7) % Lymphocytes % (Manual) 7.0 L (25-45) % Monocytes % (Manual) 3.0 (2-11) % Neutrophils # (Manual) 06780 H (0197-3155) /uL RBC Morphology Normal morphology Sodium 125 L (137-145) mmol/L Potassium 2.6 L* (3.4-5.1) mmol/L Chloride 87 L (98-107) mmol/L Carbon Dioxide 31 (22-32) mmol/L BUN 10 (7-17) mg/dL Creatinine 0.45 L (0.52-1.04) mg/dL Estimated GFR > 60 (>60) mL/min BUN/Creatinine Ratio 22.2 H (6-22) Glucose 247 H (80-110) mg/dL Lactate 2.1 (0.7-2.1) mmol/L Calcium 8.5 (8.4-10.2) mg/dL Magnesium 1.3 L (1.6-2.3) mg/dL Total Bilirubin 0.5 (0.2-1.3) mg/dL AST 32 (14-36) IU/L ALT 35 H (<35) IU/L Alkaline Phosphatase 143 H (38-126) U/L Total Protein 6.8 (6.3-8.2) g/dL Albumin 3.6 (3.5-5.0) g/dL Globulin 3.2 (1.7-4.1) g/dL Albumin/Globulin Ratio 1.1 (1.0-2.8) Urine Color Yellow Urine Appearance Clear Urine pH 6.0 (4.5-8.0) Ur Specific [place] <=1.005 (1.000-1.035) Urine Protein Negative (Negative) Urine Glucose (UA) 1+ H (Negative) g/dL Urine Ketones Negative (NEGATIVE) Urine Occult Blood Trace-intact (Negative) Urine Nitrate Negative (Negative) Urine Bilirubin Negative (NEGATIVE) Urine Urobilinogen 0.2 (0.2) E.U./dL Ur Leukocyte Esterase Trace H (NEGATIVE) Urine RBC 0-1/hpf (0-5/HPF) Urine WBC 1-5/hpf (0-5/HPF) Ur Squamous Epith Cells 1-5 /hpf (0-5/HPF) Urine Bacteria Moderate (10-30) H (None) Urine Mucus 2+ H (Negative) Ur Culture Indicated? Cult not indicated Vol Urine Centrifuged 10ml (spun) SARS-CoV-2 (PCR) Negative (Negative) Influenza A (RT-PCR) Flu a negative (NEGATIVE) Influenza B (RT-PCR) Flu b negative (NEGATIVE) RSV (PCR) Negative (Negative) 04/14/24 Range/Units 01:00 WBC (4.5-11.0) X10^3/uL RBC (4.0-5.2) X10^6/uL Hgb (12.0-16.0) g/dL Hct (36-46) % MCV (80-100) fL MCH (26-34) PG MCHC (30-36) % RDW (11.6-14.8) % Plt Count (150-400) X10^3/uL Neut % (Auto) Lymph % (Auto) [place] % (Auto) Eos % (Auto) Baso % (Auto) Lymph # (Auto) [place] # (Auto) Baso # (Auto) Total Counted Seg Neutrophils % (38-70) % Band Neutrophils % (3-7) % Lymphocytes % (Manual) (25-45) % Monocytes % (Manual) (2-11) % Neutrophils # (Manual) (6200-3442) /uL RBC Morphology Sodium (137-145) mmol/L Potassium (3.4-5.1) mmol/L Chloride (98-107) mmol/L Carbon Dioxide (22-32) mmol/L BUN (7-17) mg/dL Creatinine (0.52-1.04) mg/dL Estimated GFR (>60) mL/min BUN/Creatinine Ratio (6-22) Glucose (80-110) mg/dL Lactate 2.0 (0.7-2.1) mmol/L Calcium (8.4-10.2) mg/dL Magnesium (1.6-2.3) mg/dL Total Bilirubin (0.2-1.3) mg/dL AST (14-36) IU/L ALT (<35) IU/L Alkaline Phosphatase (38-126) U/L Total Protein (6.3-8.2) g/dL Albumin (3.5-5.0) g/dL Globulin (1.7-4.1) g/dL Albumin/Globulin Ratio (1.0-2.8) Urine Color Urine Appearance Urine pH (4.5-8.0) Ur Specific [place] (1.000-1.035) Urine Protein (Negative) Urine Glucose (UA) (Negative) g/dL Urine Ketones (NEGATIVE) Urine Occult Blood (Negative) Urine Nitrate (Negative) Urine Bilirubin (NEGATIVE) Urine Urobilinogen (0.2) E.U./dL Ur Leukocyte Esterase (NEGATIVE) Urine RBC (0-5/HPF) Urine WBC (0-5/HPF) Ur Squamous Epith Cells (0-5/HPF) Urine Bacteria (None) Urine Mucus (Negative) Ur Culture Indicated? Vol Urine Centrifuged SARS-CoV-2 (PCR) (Negative) Influenza A (RT-PCR) (NEGATIVE) Influenza B (RT-PCR) (NEGATIVE) RSV (PCR) (Negative) Imaging Data Chest x-ray: Radiologist's Impression: [address] [address] XRay Report Signed Patient: April Vallejo MR#: [id number] : 1955 Acct:[id number] Age/Sex: 68 / F Date of Service: 04/13/24 Loc: ED Accession Number: [id number] Procedure: XR chest 2V Ordering Provider: Frank Moon MD PROCEDURE: XR CHEST 2V INDICATIONS: cough, tachycardia TECHNIQUE: 2 views of the chest were acquired. COMPARISON: None. FINDINGS: Surgical changes and devices: None. Lungs and pleura: Dense parenchymal opacity in the anterior right mid lung. The left lung is clear. No significant pleural effusions seen. Mediastinum: Mediastinal contours are normal. Heart size is normal. Bones and chest wall: No suspicious bony abnormalities. Soft tissues appear unremarkable. IMPRESSION: Left anterior mid lung density suggesting pneumonia although postobstructive atelectasis cannot be excluded. Recommend follow-up following appropriate treatment. Dictated by: Osiris Dobbs M.D. on 04/13/2024 at 23:00 Approved by: Osiris Dobbs M.D. on 04/13/2024 at 23:01 ECG Data Interpretation: 2254, sinus tachycardia with ventricular rate 125, some motion artifact, no obvious ST segment elevation changes. HI 174, QRS 72, QTC 427. [facility] Narrative Medical decision making narrative: 68-year-old female with presenting complaint bilateral anterior atraumatic foreleg pain. No fever on triage. On examination seems to not have any tenderness to the anterior foreleg, there is no rash or redness, there is no discomfort with range of motion of the ankle or with plantar flexion/dorsiflexion of the ankle, nor movements of the knee. She has recent cough, tachycardia on examination. We will send EKG, chest x-ray, labs, COVID/flu swab. No ultrasound imaging warranted for lower extremities at this time, no x-rays warranted for forelegs at this time. Patient feels dehydrated, we will give IV bolus pending labs. Tylenol tried at home which is not helping, IV Toradol suggested, she is amenable, ordered. Await laboratory study results, and response to NSAID and fluids. Potassium 2.6, IV potassium, oral potassium. Magnesium also low, IV magnesium repletion ordered. IV Toradol, pain seems to be less intense White blood cell count 39905, blood cultures requested. Urinalysis pending. Chest x-ray shows left anterior density possible pneumonia, see radiology report. We will give IV ceftriaxone, oral doxycycline for community-acquired pneumonia coverage, should cover urinary tract infection if relevant once urinalysis obtained. Urinalysis shows bacteriuria, urine culture requested. Persistent tachycardia, significant electrolyte abnormalities, leukocytosis, possible pneumonia, consider admission. Patient agreeable 0100, case discussed with hospitalist Dr. Duckworth, who accepts patient for admission to inpatient service Critical Care Time Critical Care Time Critical Care Time: Yes Total Critical Care Time: 35 Attestation: The high probability of a clinically significant, sudden or life threatening deterioration of the [orthopedic, genitourinary, cardiopulmonary, metabolic] systems required my full and direct attention, intervention and personal management. The aggregate critical care time was [35] minutes. This time is in addition to time spent performing reported procedures but includes the following: [x] Data Review and interpretation [x] Patient assessment and monitoring of vital signs [x] Documentation [x] Medication orders and management Discharge Plan Departure Patient Disposition: Admitted As Inpatient Clinical Impression: Pain in the shins, Tachycardia, Hypokalemia, Hypomagnesemia, Leukocytosis, Pneumonia, Urinary tract infection Admit Date/Time: 04/14/24 01:10 Admit Provider: Pete Duckworth
--- NOTE | 2024-04-13 22:26 | DI.RAD.S_ITS ---
PROCEDURE: XR CHEST 2V INDICATIONS: cough, tachycardia TECHNIQUE: 2 views of the chest were acquired. COMPARISON: None. FINDINGS: Surgical changes and devices: None. Lungs and pleura: Dense parenchymal opacity in the anterior right mid lung. The left lung is clear. No significant pleural effusions seen. Mediastinum: Mediastinal contours are normal. Heart size is normal. Bones and chest wall: No suspicious bony abnormalities. Soft tissues appear unremarkable. IMPRESSION: Left anterior mid lung density suggesting pneumonia although postobstructive atelectasis cannot be excluded. Recommend follow-up following appropriate treatment. Dictated by: Osiris Dobbs M.D. on 04/13/2024 at 23:00 Approved by: Osiris Dobbs M.D. on 04/13/2024 at 23:01
[2024-04-13] MEDS: KETOROLAC 30 MG/ML VIAL 15 MG IV (22:45)
[2024-04-13 22:46] VITALS: PULSE 128; O2SAT 94
[2024-04-13] MEDS: SODIUM CHLORIDE 0.9% 1,000 ML 1000 ML IV (22:46)
--- NOTE | 2024-04-13 22:54 | EKG_ITS ---
[place] [id number] [place] [id number] Test Date: 2024-04-13 Pat Name: April Vallejo Department: [facility] Room: Gender: Female [employer] Lead: : 1955 Requested By: Order Number: [id number] Reading MD: Zion Mendoza Measurements Intervals [place] Rate: 125 P: 75 GA: 174 QRS: 73 QRSD: 72 T: 63 QT: 296 QTc: 427 Interpretive Statements Sinus tachycardia Biatrial enlargement Septal infarct , age undetermined Electronically Signed On 04-14-2024 14:32:20 PST by Zion Mendoza
[2024-04-13 22:58] VITALS: BP 107/55; PULSE 126; O2SAT 93
[2024-04-13 23:00] VITALS: PULSE 125; O2SAT 95
[2024-04-13 23:15] LABS: Hematocrit 41.5 % (36-46); Hemoglobin 14.1 g/dL (12.0-16.0); Mean Corpuscular HGB Conc 33.9 % (30-36); Mean Corpuscular Hemoglobin 31.7 PG (26-34); Mean Corpuscular Volume 93.6 fL (80-100); Platelet Count 336 X10^3/uL (150-400); Red Blood Cell Count 4.43 X10^6/uL (4.0-5.2); Red Cell Distribution Width 12.9 % (11.6-14.8); White Blood Cell Count 27.2 X10^3/uL (4.5-11.0)
[2024-04-13 23:19] LABS: Add Manual Diff / Slide Review YES
[2024-04-13 23:20] LABS: Alanine Aminotransferase 35 IU/L (<35); Albumin 3.6 g/dL (3.5-5.0); Albumin Globulin Ratio 1.1 (1.0-2.8); Alkaline Phosphatase 143 U/L (38-126); Aspartate Aminotransferase 32 IU/L (14-36); BUN Creatinine Ratio 22.2 (6-22); Bilirubin Total 0.5 mg/dL (0.2-1.3); Blood Urea Nitrogen 10 mg/dL (7-17); Calcium 8.5 mg/dL (8.4-10.2); Carbon Dioxide 31 mmol/L (22-32); Chloride 87 mmol/L (98-107); Estimated Glomerular Filt Rate > 60 mL/min (>60); Globulin 3.2 g/dL (1.7-4.1); Glucose 247 mg/dL (80-110); Lactate (Lactic Acid) 2.1 mmol/L (0.7-2.1); Magnesium 1.3 mg/dL (1.6-2.3); Sodium 125 mmol/L (137-145); Total Protein 6.8 g/dL (6.3-8.2)
[2024-04-13 23:27] LABS: HEMOLYSIS 18 (0-50)
[2024-04-13 23:30] VITALS: BP 96/51; PULSE 115; O2SAT 94
[2024-04-13 23:33] LABS: Potassium 2.6 mmol/L (3.4-5.1)
[2024-04-13 23:50] LABS: Neutrophils Absolute Manual 24480 /uL (3000-5900); RBC Morphology Normal Morphology; Total Cells Counted 100
[2024-04-13] MEDS: POTASSIUM CHLORIDE 20 MEQ/15 ML UDC 40 MEQ PO (23:51)
[2024-04-13] MEDS: MAGNESIUM SULFATE 2 GM/50 ML PIGGYBACK IV (23:53)
[2024-04-14] VITALS (10 sets, daily range): BP systolic 88–133; BP diastolic 55–71; PULSE 98–124; RESP 16–19; TEMP 36.1–37.1; O2SAT 93–99; BMI 19.3
[2024-04-14 00:33] LABS: Influenza A - CEPHEID Flu A NEGATIVE (NEGATIVE); Influenza B - CEPHEID Flu B NEGATIVE (NEGATIVE); Respiratory Syncytial Virus Negative (Negative)
[2024-04-14 00:36] LABS: Appearance Urine UA CLEAR; Bilirubin Urine UA NEGATIVE (NEGATIVE); Color Urine UA YELLOW; Glucose Urine UA 1+ g/dL (Negative); Ketones Urine UA NEGATIVE (NEGATIVE); Leukocyte Esterase Urine UA TRACE (NEGATIVE); Nitrite Urine UA NEGATIVE (Negative); Occult Blood Urine UA TRACE-INTACT (Negative); Protein Urine UA NEGATIVE (Negative); Specific Gravity Urine UA <=1.005 (1.000-1.035); Urobilinogen Urine UA 0.2 E.U./dL (0.2)
[2024-04-14 00:39] LABS: COVID-19 CEPHEID 4-PLEX PCR Negative (Negative)
[2024-04-14 00:40] LABS: Reflexed Lactate in 2 Hours Y
[2024-04-14 00:43] LABS: Bacteria Urine Moderate (10-30); Mucus Urine 2+ (Negative); RBC Urine 0-1/HPF (0-5/HPF); Squamous Epithelial Cell Urine 1-5 /HPF (0-5/HPF); Urine Volume 10mL (spun)
[2024-04-14 00:44] LABS: WBC Urine 1-5/HPF (0-5/HPF)
[2024-04-14 00:45] LABS: Culture Indicated Urine Cult Not Indicated
[2024-04-14] MEDS: SODIUM CHLORIDE 0.9% 1,000 ML 1000 ML IV (00:58)
[2024-04-14] MEDS: POTASSIUM CHLORIDE IN WATER 10 MEQ/100 ML PIGGYBACK 100 MEQ IV ×2 (01:01→01:51)
[2024-04-14] MEDS: DOXYCYCLINE HYCLATE 100 MG TABLET PO (01:20)
[2024-04-14] MEDS: cefTRIAXone 1,000 MG in SODIUM CHLORIDE 0.9% 100 ML 200 MG IV ×2 (01:21→20:54)
[2024-04-14] MEDS: SODIUM CHLORIDE 0.9% 1,000 ML 75 ML IV ×2 (02:40→16:58)
--- NOTE | 2024-04-14 03:40 | P.HP_ITS ---
History of Present Illness History of Present Illness Chief complaint: pain in lower legs Narrative: 68 year old female with past medical history of NIDDM and HTN presents with bilateral mcgovern discomfort. Per the patient's report, over the last four days, the patient started to noticed increasing dry coughing poor appeitite and feels dehydrated. The patient also noted very strange anterior bilateral mcgovern discomfort but denies any injury to her mcgovern or LEs. The patient denies any calf pain. The patient did try some tylenol for her mcgovern pain with minimal improvement. The patient otherwise denies any fever, chills, nausea, vomiting or diarrhea. The patient also denies any chest pain or shortness of breath. In our ER, the patient was tachycardic but hemodynamically stable. The patient WBC was 27, sodim 125, potassium 2.6, magneseium 1.3. and glucose of 247. The patient CXR shows possible pneumonia and urine shows bacteriuria. The patient was given IV Ceftriaxone, Doxycycline, Magnesium and potassium replacement and NS. Note the patient was not septic. [facility] Medical History (Updated 04/14/24 @ 00:47 by Frank Moon MD) Vitamin D deficiency Acquired hammertoes of both feet Osteopenia after menopause At risk for foot problem Sacral region somatic dysfunction Somatic dysfunction of lower extremity Piriformis syndrome of right side Acute right hip pain Type 2 diabetes mellitus without complication Abnormal Pap smear of cervix (~1994) Hypertension Surgical History No history of previous surgery Family History Father No problems noted. Mother No problems noted. Sister Cancer Grandmother Diabetes mellitus Social History household members: spouse Smoking Status: Current every day smoker Tobacco: How many years used: 20 alcohol intake: current Meds Home Medications and Allergies Home Medications Medication Instructions Recorded Confirmed Type metformin 500 mg tablet,extended See Rx Instructions .Route 04/25/23 04/14/24 Rx release 24 hr .COMPLEX #360 tabs metoprolol tartrate 50 See Rx Instructions .Route 04/25/23 04/14/24 Rx mg-hydrochlorothiazide 25 mg tablet .COMPLEX #90 tabs Allergies Allergy/AdvReac Type Severity Reaction Status Date / Time atorvastatin [From Lipitor] Allergy myalgia Verified 05/31/23 15:04 Review of Systems Review of Systems ROS: Yes All systems reviewed with the patient and are negative except as otherwise documented Exam Vital Signs (past 8 hours): - 04/13/24 22:46 04/13/24 22:58 04/13/24 22:58 Temperature Pulse Rate 128 H 126 H Respiratory Rate Blood Pressure 107/55 L Pulse Oximetry 94 93 Oxygen Delivery Method 04/13/24 23:00 04/13/24 23:30 04/13/24 23:30 Temperature Pulse Rate 125 H 115 H Respiratory Rate Blood Pressure 96/51 L Pulse Oximetry 95 94 Oxygen Delivery Method 04/14/24 00:00 04/14/24 00:00 04/14/24 00:04 Temperature Pulse Rate 115 H 109 H Respiratory Rate Blood Pressure 88/55 L Pulse Oximetry 94 93 Oxygen Delivery Method Room Air 04/14/24 00:04 04/14/24 01:29 04/14/24 01:29 Temperature Pulse Rate 103 H Respiratory Rate 16 Blood Pressure 91/55 L 124/65 Pulse Oximetry 98 Oxygen Delivery Method 04/14/24 01:30 04/14/24 02:17 Temperature 97.9 F Pulse Rate 104 H 106 H Respiratory Rate 16 17 Blood Pressure 133/63 Pulse Oximetry 99 98 Oxygen Delivery Method Oxygen Delivery Method Room Air Narrative Exam Narrative: Physical Exam: GENERAL: The patient is not in any acute distressed. Awake and alert. HEENT: Nonicteric sclerae, PERRLA, EOMI. Oropharynx clear. Moist mucous membranes. Conjunctivae appear well perfused. HEART: Regular rate and rhythm without murmurs. No lower extremities edema. LUNGS: Clear to auscultation bilaterally. No wheezing, crackles or rhonchi ABDOMEN: Soft, positive bowel sounds, nontender. SKIN: No rash, no excessive bruising, petechiae, or purpura. NEUROLOGIC: AxO x 3. Cranial nerves II-XII intact without motor/sensory deficit. Objective Labs 04/13/24 22:57 04/13/24 22:57 Labs: Laboratory Results - last 24 hr 04/13/24 04/13/24 04/14/24 22:57 23:15 00:18 WBC 27.2 H RBC 4.43 Hgb 14.1 Hct 41.5 MCV 93.6 MCH 31.7 MCHC 33.9 RDW 12.9 Plt Count 336 Neut % (Auto) Not Reportable Lymph % (Auto) Not Reportable [place] % (Auto) Not Reportable Eos % (Auto) Not Reportable Baso % (Auto) Not Reportable Lymph # (Auto) Not Reportable [place] # (Auto) Not Reportable Baso # (Auto) Not Reportable Total Counted 100 Seg Neutrophils % 86.0 H Band Neutrophils % 4.0 Lymphocytes % (Manual) 7.0 L Monocytes % (Manual) 3.0 Neutrophils # (Manual) 26037 H RBC Morphology Normal morphology Sodium 125 L Potassium 2.6 L* Chloride 87 L Carbon Dioxide 31 BUN 10 Creatinine 0.45 L Estimated GFR > 60 BUN/Creatinine Ratio 22.2 H Glucose 247 H Lactate 2.1 Calcium 8.5 Magnesium 1.3 L Total Bilirubin 0.5 AST 32 ALT 35 H Alkaline Phosphatase 143 H Total Protein 6.8 Albumin 3.6 Globulin 3.2 Albumin/Globulin Ratio 1.1 Urine Color Yellow Urine Appearance Clear Urine pH 6.0 Ur Specific [place] <=1.005 Urine Protein Negative Urine Glucose (UA) 1+ H Urine Ketones Negative Urine Occult Blood Trace-intact Urine Nitrate Negative Urine Bilirubin Negative Urine Urobilinogen 0.2 Ur Leukocyte Esterase Trace H Urine RBC 0-1/hpf Urine WBC 1-5/hpf Ur Squamous Epith Cells 1-5 /hpf Urine Bacteria Moderate (10-30) H Urine Mucus 2+ H Ur Culture Indicated? Cult not indicated Vol Urine Centrifuged 10ml (spun) SARS-CoV-2 (PCR) Negative Influenza A (RT-PCR) Flu a negative Influenza B (RT-PCR) Flu b negative RSV (PCR) Negative 04/14/24 01:00 WBC RBC Hgb Hct MCV MCH MCHC RDW Plt Count Neut % (Auto) Lymph % (Auto) [place] % (Auto) Eos % (Auto) Baso % (Auto) Lymph # (Auto) [place] # (Auto) Baso # (Auto) Total Counted Seg Neutrophils % Band Neutrophils % Lymphocytes % (Manual) Monocytes % (Manual) Neutrophils # (Manual) RBC Morphology Sodium Potassium Chloride Carbon Dioxide BUN Creatinine Estimated GFR BUN/Creatinine Ratio Glucose Lactate 2.0 Calcium Magnesium Total Bilirubin AST ALT Alkaline Phosphatase Total Protein Albumin Globulin Albumin/Globulin Ratio Urine Color Urine Appearance Urine pH Ur Specific [place] Urine Protein Urine Glucose (UA) Urine Ketones Urine Occult Blood Urine Nitrate Urine Bilirubin Urine Urobilinogen Ur Leukocyte Esterase Urine RBC Urine WBC Ur Squamous Epith Cells Urine Bacteria Urine Mucus Ur Culture Indicated? Vol Urine Centrifuged SARS-CoV-2 (PCR) Influenza A (RT-PCR) Influenza B (RT-PCR) RSV (PCR) Assessment & Plan Assessment & Plan narrative: Possible Pneumonia and UTI. Admit the patient to medical inpatient. Continue IV Ceftriaxone and Doxycycline. Monitor for sepsis. Patient is stable at this point. Follow up cultures drawn in ER. Discomfort in bilateral mcgovern. Note patient states that her symptoms now improve with IV fluid and replacement of electrolytes. Hyponatremia. Likely from dehydration. NS and monitor sodium level. Currently sodium is 125. Hypokalemia. Replace and monitor. Hypomagnesemia. Replace and monitor. Dehydration. IVF. NIDDM. Hold home Metformin. Start SQ insulin and monitor glucose closely. DVT PPx hep SQ Code status full code Disposition home in 2 days Time-Based Coding :: [TOTAL MINUTES] spent with patient and on the chart (including review of chart, obtaining history, exam, reviewing outside data, placing orders, documenting exam and treatment plan, and counseling patient) on [DATE]. Quality VTE Deep Vein Thrombosis/Pulmonary Embolism Present on Admission: No
[2024-04-14 04:47] LABS: Add Manual Diff / Slide Review NO; Basophils Absolute Auto 100 /uL (0-100); Basophils Percent Auto 0.5 % (0-2); Eosinophils Absolute Auto 0 /uL (0-450); Eosinophils Percent Auto 0.2 % (2-4); Hematocrit 35.4 % (36-46); Hemoglobin 12.1 g/dL (12.0-16.0); Lymphocytes Absolute Auto 1400 /uL (1100-4500); Lymphocytes Percent Auto 6.3 % (25-40); Mean Corpuscular HGB Conc 34.2 % (30-36); Mean Corpuscular Hemoglobin 31.8 PG (26-34); Mean Corpuscular Volume 92.9 fL (80-100); Monocytes Absolute Auto 500 /uL (0-900); Monocytes Percent Auto 2.3 % (3-14); Neutrophils Absolute Auto 20200 /uL (1500-7000); Neutrophils Percent Auto 90.7 % (50-75); Platelet Count 305 X10^3/uL (150-400); Red Blood Cell Count 3.81 X10^6/uL (4.0-5.2); Red Cell Distribution Width 12.9 % (11.6-14.8); White Blood Cell Count 22.2 X10^3/uL (4.5-11.0)
[2024-04-14 05:06] LABS: Alanine Aminotransferase 27 IU/L (<35); Albumin 2.8 g/dL (3.5-5.0); Albumin Globulin Ratio 0.9 (1.0-2.8); Alkaline Phosphatase 113 U/L (38-126); Aspartate Aminotransferase 26 IU/L (14-36); BUN Creatinine Ratio 19.1 (6-22); Bilirubin Total 0.4 mg/dL (0.2-1.3); Blood Urea Nitrogen 9 mg/dL (7-17); Calcium 7.9 mg/dL (8.4-10.2); Carbon Dioxide 29 mmol/L (22-32); Chloride 97 mmol/L (98-107); Estimated Glomerular Filt Rate > 60 mL/min (>60); Glucose 160 mg/dL (80-110); HEMOLYSIS < 15 (0-50); Potassium 3.1 mmol/L (3.4-5.1); Sodium 127 mmol/L (137-145); Total Protein 5.8 g/dL (6.3-8.2)
[2024-04-14 05:07] LABS: Magnesium 1.9 mg/dL (1.6-2.3)
[2024-04-14] MEDS: POTASSIUM CHLORIDE 20 MEQ/15 ML UDC 40 MEQ PO (05:33)
--- NOTE | 2024-04-14 07:38 | P.HP_ITS ---
History of Present Illness History of Present Illness Date Patient Seen: 04/14/24 Chief complaint: pain in lower legs Narrative: From night doctor: 68 year old female with past medical history of NIDDM and HTN presents with bilateral mcgovern discomfort. Per the patient's report, over the last four days, the patient started to noticed increasing dry coughing poor appeitite and feels dehydrated. The patient also noted very strange anterior bilateral mcgovern discomfort but denies any injury to her mcgovern or LEs. The patient denies any calf pain. The patient did try some tylenol for her mcgovern pain with minimal improvement. The patient otherwise denies any fever, chills, nausea, vomiting or diarrhea. The patient also denies any chest pain or shortness of breath. In our ER, the patient was tachycardic but hemodynamically stable. The patient WBC was 27, sodim 125, potassium 2.6, magneseium 1.3. and glucose of 247. The patient CXR shows possible pneumonia and urine shows bacteriuria. The patient was given IV Ceftriaxone, Doxycycline, Magnesium and potassium replacement and NS. Note the patient was not septic. Additional information: She off for about the last week, worse at night. Minimal sputum production. No fevers, but possibly some chills. No nausea, or vomiting. No diarrhea above and beyond chronic metformin related diarrhea. She has been on metformin for some time. She lives in [place] with her family. She was in the room today with her and daughter. COUNT INCLUDES THE [facility] Medical History Vitamin D deficiency Acquired hammertoes of both feet Osteopenia after menopause At risk for foot problem Sacral region somatic dysfunction Somatic dysfunction of lower extremity Piriformis syndrome of right side Acute right hip pain Type 2 diabetes mellitus without complication Abnormal Pap smear of cervix (~1994) Hypertension Surgical History No history of previous surgery Family History Father No problems noted. Mother No problems noted. Sister Cancer Grandmother Diabetes mellitus Social History household members: spouse Smoking Status: Current every day smoker Tobacco: How many years used: 20 alcohol intake: current Meds Home Medications and Allergies Home Medications Medication Instructions Recorded Confirmed Type metformin 500 mg tablet,extended See Rx Instructions .Route 04/25/23 04/14/24 Rx release 24 hr .COMPLEX #360 tabs metoprolol tartrate 50 See Rx Instructions .Route 04/25/23 04/14/24 Rx mg-hydrochlorothiazide 25 mg tablet .COMPLEX #90 tabs Allergies Allergy/AdvReac Type Severity Reaction Status Date / Time atorvastatin [From Lipitor] Allergy myalgia Verified 05/31/23 15:04 Review of Systems Review of Systems Narrative: All else reviewed and otherwise unremarkable except as noted in the history and physical. Exam Vital Signs (past 8 hours): - 04/14/24 00:00 04/14/24 00:00 04/14/24 00:04 Temperature Pulse Rate 115 H 109 H Respiratory Rate Blood Pressure 88/55 L Pulse Oximetry 94 93 Oxygen Delivery Method Room Air 04/14/24 00:04 04/14/24 01:29 04/14/24 01:29 Temperature Pulse Rate 103 H Respiratory Rate 16 Blood Pressure 91/55 L 124/65 Pulse Oximetry 98 Oxygen Delivery Method 04/14/24 01:30 04/14/24 02:17 04/14/24 04:54 Temperature 97.9 F 98.7 F Pulse Rate 104 H 106 H 107 H Respiratory Rate 16 17 18 Blood Pressure 133/63 115/55 L Pulse Oximetry 99 98 96 Oxygen Delivery Method Oxygen Delivery Method Room Air Narrative Exam Narrative: NAD, alert and oriented, fluent speech, calm. Normocephalic skull, EOMI, anicteric sclera, symmetric pupils. Oropharynx unremarkable, no droop. Neck supple, midline trachea, no adenopathy. Lungs clear, normal rate and effort. Heart regular, no murmur gallop or rub. Abdomen is soft, non distended and non tender. Extremities are free of edema. Skin is free of rash or lesions. Joints are not swollen or deformed. Judgment appears to be normal. Objective ECG Impression: Sinus tachycardia Biatrial enlargement Septal infarct , age undetermined Imaging Chest x-ray: My impression: The x-ray appears to be inverted. To my read the patient has a right mid lung density versus infiltrate. Radiologist's impression: Left anterior mid lung density suggesting pneumonia although postobstructive atelectasis cannot be excluded. Recommend follow-up following appropriate treatment. Labs 04/14/24 04:25 04/14/24 04:25 Labs: Laboratory Results - last 24 hr 04/13/24 04/13/24 04/14/24 22:57 23:15 00:18 WBC 27.2 H RBC 4.43 Hgb 14.1 Hct 41.5 MCV 93.6 MCH 31.7 MCHC 33.9 RDW 12.9 Plt Count 336 Neut % (Auto) Not Reportable Lymph % (Auto) Not Reportable [place] % (Auto) Not Reportable Eos % (Auto) Not Reportable Baso % (Auto) Not Reportable Neut # (Auto) Lymph # (Auto) Not Reportable [place] # (Auto) Not Reportable Eos # (Auto) Baso # (Auto) Not Reportable Total Counted 100 Seg Neutrophils % 86.0 H Band Neutrophils % 4.0 Lymphocytes % (Manual) 7.0 L Monocytes % (Manual) 3.0 Neutrophils # (Manual) 81438 H RBC Morphology Normal morphology Sodium 125 L Potassium 2.6 L* Chloride 87 L Carbon Dioxide 31 BUN 10 Creatinine 0.45 L Estimated GFR > 60 BUN/Creatinine Ratio 22.2 H Glucose 247 H Lactate 2.1 Calcium 8.5 Magnesium 1.3 L Total Bilirubin 0.5 AST 32 ALT 35 H Alkaline Phosphatase 143 H Total Protein 6.8 Albumin 3.6 Globulin 3.2 Albumin/Globulin Ratio 1.1 Urine Color Yellow Urine Appearance Clear Urine pH 6.0 Ur Specific [place] <=1.005 Urine Protein Negative Urine Glucose (UA) 1+ H Urine Ketones Negative Urine Occult Blood Trace-intact Urine Nitrate Negative Urine Bilirubin Negative Urine Urobilinogen 0.2 Ur Leukocyte Esterase Trace H Urine RBC 0-1/hpf Urine WBC 1-5/hpf Ur Squamous Epith Cells 1-5 /hpf Urine Bacteria Moderate (10-30) H Urine Mucus 2+ H Ur Culture Indicated? Cult not indicated Vol Urine Centrifuged 10ml (spun) SARS-CoV-2 (PCR) Negative Influenza A (RT-PCR) Flu a negative Influenza B (RT-PCR) Flu b negative RSV (PCR) Negative 04/14/24 04/14/24 01:00 04:25 WBC 22.2 H RBC 3.81 L Hgb 12.1 Hct 35.4 L MCV 92.9 MCH 31.8 MCHC 34.2 RDW 12.9 Plt Count 305 Neut % (Auto) 90.7 H Lymph % (Auto) 6.3 L [place] % (Auto) 2.3 L Eos % (Auto) 0.2 L Baso % (Auto) 0.5 Neut # (Auto) 82014 H Lymph # (Auto) 1400 [place] # (Auto) 500 Eos # (Auto) 0 Baso # (Auto) 100 Total Counted Seg Neutrophils % Band Neutrophils % Lymphocytes % (Manual) Monocytes % (Manual) Neutrophils # (Manual) RBC Morphology Sodium 127 L Potassium 3.1 L Chloride 97 L Carbon Dioxide 29 BUN 9 Creatinine 0.47 L Estimated GFR > 60 BUN/Creatinine Ratio 19.1 Glucose 160 H Lactate 2.0 Calcium 7.9 L Magnesium 1.9 Total Bilirubin 0.4 AST 26 ALT 27 Alkaline Phosphatase 113 Total Protein 5.8 L Albumin 2.8 L Globulin 3.0 Albumin/Globulin Ratio 0.9 L Urine Color Urine Appearance Urine pH Ur Specific [place] Urine Protein Urine Glucose (UA) Urine Ketones Urine Occult Blood Urine Nitrate Urine Bilirubin Urine Urobilinogen Ur Leukocyte Esterase Urine RBC Urine WBC Ur Squamous Epith Cells Urine Bacteria Urine Mucus Ur Culture Indicated? Vol Urine Centrifuged SARS-CoV-2 (PCR) Influenza A (RT-PCR) Influenza B (RT-PCR) RSV (PCR) Assessment & Plan Assessment & Plan narrative: 1. Pneumonia(R mid lung). Present on admission and active. 2. UTI. Present on admission and active. 3. Discomfort in bilateral mcgovern. Note patient states that her symptoms now improve with IV fluid and replacement of electrolytes. Present on admission and improved. 4. Hyponatremia. Present on admission and active. 5. Hypokalemia. Present on admission and active. 6. Hypomagnesemia. Present on admission and active. 7. Dehydration. Present on admission and active. 8. NIDDM. Present on admission and active. PLAN: -IV antibiotics, continue Ceftriaxone and doxy. -monitor cultures -consider a CT scan of the chest to further characterize the density in the right mid lung -IV fluids for volume repletion -saline repletion for hypovolemic hyponatremia and monitor sodium. Appropriate rate correction. -replace and monitor potassium and magnesium Anticipate a 2 midnight length of hospital necessity. This supports inpatient status. DVT PPx hep SQ Code status full code Time-Based Coding :: 35 min spent with patient and on the chart (including review of chart, obtaining history, exam, reviewing outside data, placing orders, documenting exam and treatment plan, and counseling patient) on 04/14. Quality VTE Deep Vein Thrombosis/Pulmonary Embolism Present on Admission: No MIPS - Admit I confirm the patient?s Advance Care Plan is present, Code status is documented, Surrogate decision maker is in patient?s record [If Yes, STOP here]: Yes MIPS - Meds 'Current medications' to include all prescriptions, [id number] products, herbals, cannabis/cannabidiol products, and vitamin/mineral/dietary (nutritional) supplements. I have utilized all available resources to obtain, update, or review the patient?s current medications. [If Yes, STOP here]: Yes
[2024-04-14] MEDS: HEPARIN 5,000 UNIT/ML VIAL 5000 UNIT SUBCUT ×2 (09:34→20:54)
[2024-04-14] MEDS: INSULIN GLARGINE 100 UNIT/ML 3ML PEN 20 UNIT SUBCUT (09:34)
[2024-04-14] MEDS: ACETAMINOPHEN 325 MG TABLET 650 MG PO (09:38)
[2024-04-14] MEDS: DOXYCYCLINE 100 MG in SODIUM CHLORIDE 0.9% 100 ML IV ×2 (11:27→22:06)
--- NOTE | 2024-04-14 15:53 | CM.DANOTE ---
Initial DCP Assessment Note Pt is a 68yo female, resident of [place], admitted for management of PNA, UTI, dehydration-lab abnormalities. PCP: Federico Menchaca Payer: [facility] Reviewed chart, pt discussed in multidisciplinary rounds this morning. IV abx started, monitor cultures, IV fluids and replacement of potassium and magnesium today. Supportive spouse and family at bedside today. Patient lives independently w/family. No barriers identified at this time to patient's safe discharge home w/family to assist; close outpatient f/u recommended. CM team will plan to follow clinical course closely in case any DC needs or concerns arise. VIANNEY Mejia Discharge Planning/Care Management CM Discharge Assessment Start: 04/14/24 15:50 Freq: Status: Active Protocol: Document 04/14/24 15:50 MARILY (Rec: 04/14/24 15:53 MARILY [id number]) Discharge Planning Assessment Assigned Strategic Partnership Representative VIANNEY Harris DPOA/Assigned Designee Name Andrea Vallejo, spouse Contact Information [phone] Advance Directives? No History Provided By Patient,Significant Other, Medical Record Prior Living Arrangements House Household Members spouse,family Type of transporation used prior to Drives own vehicle admit Independent with ADL's Yes Is patient alert and oriented? Yes Barriers to Discharge No Discharge Plan Home Transportation Arrangement Family Referrals Initiated None needed
[2024-04-14] MEDS: POTASSIUM CHLORIDE 20 MEQ TAB 40 MEQ PO (16:58)
[2024-04-15] VITALS: BP 139/71; PULSE 103; RESP 17; TEMP 36.9; O2SAT 95
[2024-04-15 04:00] VITALS: BP 132/64; PULSE 93; RESP 17; TEMP 36.6; O2SAT 95
[2024-04-15] MEDS: SODIUM CHLORIDE 0.9% 1,000 ML 75 ML IV (07:03)
[2024-04-15 08:00] VITALS: BP 120/71; PULSE 93; RESP 18; TEMP 36.1; O2SAT 96
[2024-04-15] MEDS: HEPARIN 5,000 UNIT/ML VIAL 5000 UNIT SUBCUT (08:29)
[2024-04-15] MEDS: POTASSIUM CHLORIDE 20 MEQ TAB 40 MEQ PO (08:29)
[2024-04-15] MEDS: INSULIN GLARGINE 100 UNIT/ML 3ML PEN 20 UNIT SUBCUT (08:30)
[2024-04-15 09:42] LABS: Add Manual Diff / Slide Review NO; Basophils Absolute Auto 100 /uL (0-100); Basophils Percent Auto 0.6 % (0-2); Eosinophils Absolute Auto 200 /uL (0-450); Eosinophils Percent Auto 1.1 % (2-4); Lymphocytes Absolute Auto 1300 /uL (1100-4500); Lymphocytes Percent Auto 9.7 % (25-40); Mean Corpuscular HGB Conc 33.3 % (30-36); Mean Corpuscular Hemoglobin 31.5 PG (26-34); Mean Corpuscular Volume 94.5 fL (80-100); Monocytes Absolute Auto 600 /uL (0-900); Monocytes Percent Auto 4.3 % (3-14); Neutrophils Absolute Auto 11400 /uL (1500-7000); Neutrophils Percent Auto 84.3 % (50-75); Platelet Count 411 X10^3/uL (150-400); Red Blood Cell Count 4.13 X10^6/uL (4.0-5.2); White Blood Cell Count 13.5 X10^3/uL (4.5-11.0)
[2024-04-15 09:59] LABS: Alanine Aminotransferase 31 IU/L (<35); Albumin Globulin Ratio 1.2 (1.0-2.8); Alkaline Phosphatase 122 U/L (38-126); Aspartate Aminotransferase 31 IU/L (14-36); Bilirubin Total 0.3 mg/dL (0.2-1.3); Blood Urea Nitrogen 8 mg/dL (7-17); Calcium 8.7 mg/dL (8.4-10.2); Carbon Dioxide 25 mmol/L (22-32); Chloride 101 mmol/L (98-107); Estimated Glomerular Filt Rate > 60 mL/min (>60); Globulin 2.5 g/dL (1.7-4.1); Glucose 222 mg/dL (80-110); HEMOLYSIS 17 (0-50); Magnesium 1.5 mg/dL (1.6-2.3); Phosphorous 1.7 mg/dL (2.8-4.1); Potassium 4.7 mmol/L (3.4-5.1); Sodium 131 mmol/L (137-145); Total Protein 5.5 g/dL (6.3-8.2)
[2024-04-15] MEDS: DOXYCYCLINE 100 MG in SODIUM CHLORIDE 0.9% 100 ML IV (11:23)
--- NOTE | 2024-04-15 11:58 | CM.DPNOTE ---
Addendum entered by VIANNEY Multani 04/15/24 14:19: per chart, pt dc order in for home today. CIGAR MAKING MACHINE SUPERVISOR updated TCM team. No further CM needs identified at this time. SL Original Note: DCP note CIGAR MAKING MACHINE SUPERVISOR reviewed EMR Per hospitalist in morning rounds, potential dc today pending lab results Per RN, pt indep in room. no obvious CM needs. No barriers identified at this time to patient's safe discharge home w/family to assist; close outpatient f/u recommended, need to alert TCM team to dc. CM team will plan to follow clinical course closely in case any DC needs or concerns arise. VIANNEY Multani
[2024-04-15 12:00] VITALS: BP 106/53; PULSE 88; RESP 18; TEMP 36.3; O2SAT 98
[2024-04-15] MEDS: INSULIN LISPRO 100 UNIT/ML 3ML VIAL SUBCUT (12:20)
[2024-04-15] MEDS: MAGNESIUM CHLORIDE 64 MG TABLET 128 MG PO (12:21)
--- NOTE | 2024-04-15 14:08 | P.DS_ITS ---
History of Present Illness History of Present Illness Date Patient Seen: 04/15/24 Time Patient Seen: 14:09 Chief complaint: pain in lower legs Narrative: From night doctor: 68 year old female with past medical history of NIDDM and HTN presents with bilateral mcgovern discomfort. Per the patient's report, over the last four days, the patient started to noticed increasing dry coughing poor appeitite and feels dehydrated. The patient also noted very strange anterior bilateral mcgovern discomfort but denies any injury to her mcgovern or LEs. The patient denies any calf pain. The patient did try some tylenol for her mcgovern pain with minimal improvement. The patient otherwise denies any fever, chills, nausea, vomiting or diarrhea. The patient also denies any chest pain or shortness of breath. In our ER, the patient was tachycardic but hemodynamically stable. The patient WBC was 27, sodim 125, potassium 2.6, magneseium 1.3. and glucose of 247. The patient CXR shows possible pneumonia and urine shows bacteriuria. The patient was given IV Ceftriaxone, Doxycycline, Magnesium and potassium replacement and NS. Note the patient was not septic. Additional information: She off for about the last week, worse at night. Minimal sputum production. No fevers, but possibly some chills. No nausea, or vomiting. No diarrhea above and beyond chronic metformin related diarrhea. She has been on metformin for some time. She lives in [place] with her family. She was in the room today with her and daughter. Discharge Providers Provider Date of admission: 04/14/24 01:10 Discharge Date: 04/15/24 Primary care physician: Federico Menchaca DO Discharge provider: Hema Ashraf DO Summary Hospital Course Discharge Diagnosis: 1. Bacterial Pneumonia(R mid lung). Present on admission and active. 3. Discomfort in bilateral mcgovern. Note patient states that her symptoms now improve with IV fluid and replacement of electrolytes. Present on admission and improved. 4. Hyponatremia. Present on admission and active. 5. Hypokalemia. Present on admission and active. 6. Hypomagnesemia. Present on admission and active. 7. Dehydration. Present on admission and active. 8. NIDDM. Present on admission and active. Hospital Course: This is a 68-year-old female with medical history of diabetes who presented with bilateral mcgovern discomfort and cough for about a week. Initial imaging showed a possible pneumonia, and initial chemistry showed hyponatremia, hypokalemia and hypomagnesemia likely from mild dehydration. After electrolyte repletion and IV fluids she felt much improved, and her cough had also improved slightly. These all improved much more quickly than anticipated. She was started on antibiotics here in the hospital and will continue on Augmentin upon discharge for presumed community acquired right mid lung pneumonia. Given improvement in her oral intake at the time of discharge, she has not anticipated to need supplement repletion of her potassium or magnesium. Recommend continued outpatient follow- up with her primary care provider after discharge. Please consider repeat chest x-ray in a couple of months to assess for resolution of her opacity seen on admission radiograph. Time Spent with Patient Time spent: Greater than 30 minutes Exam Vital Signs (past 8 hours): - 04/15/24 08:00 04/15/24 12:00 Temperature 97.0 F L 97.4 F L Pulse Rate 93 H 88 Respiratory Rate 18 18 Blood Pressure 120/71 106/53 L Pulse Oximetry 96 98 Oxygen Flow Rate 0 0 Oxygen Delivery Method Room Air Oxygen Flow Rate 0 Narrative Exam Narrative: NAD, alert and oriented, fluent speech, calm. Normocephalic skull, EOMI, anicteric sclera, symmetric pupils. Oropharynx unremarkable, no droop. Neck supple, midline trachea, no adenopathy. Lungs clear, normal rate and effort. Heart regular, no murmur gallop or rub. Abdomen is soft, non distended and non tender. Extremities are free of edema. Skin is free of rash or lesions. Joints are not swollen or deformed. Judgment appears to be normal. Objective Labs 04/15/24 09:30 04/15/24 09:30 Labs: Laboratory Results - last 24 hr 04/15/24 09:30 WBC 13.5 H RBC 4.13 Hgb 13.0 Hct 39.0 MCV 94.5 MCH 31.5 MCHC 33.3 RDW 13.0 Plt Count 411 H Neut % (Auto) 84.3 H Lymph % (Auto) 9.7 L [place] % (Auto) 4.3 Eos % (Auto) 1.1 L Baso % (Auto) 0.6 Neut # (Auto) 59301 H Lymph # (Auto) 1300 [place] # (Auto) 600 Eos # (Auto) 200 Baso # (Auto) 100 Sodium 131 L Potassium 4.7 D Chloride 101 Carbon Dioxide 25 BUN 8 Creatinine 0.40 L Estimated GFR > 60 BUN/Creatinine Ratio 20.0 Glucose 222 H Calcium 8.7 Phosphorus 1.7 L Magnesium 1.5 L Total Bilirubin 0.3 AST 31 ALT 31 Alkaline Phosphatase 122 Total Protein 5.5 L Albumin 3.0 L Globulin 2.5 Albumin/Globulin Ratio 1.2 PFSH Medical History Vitamin D deficiency Acquired hammertoes of both feet Osteopenia after menopause At risk for foot problem Sacral region somatic dysfunction Somatic dysfunction of lower extremity Piriformis syndrome of right side Acute right hip pain Type 2 diabetes mellitus without complication Abnormal Pap smear of cervix (~1994) Hypertension Surgical History No history of previous surgery Family History Father No problems noted. Mother No problems noted. Sister Cancer Grandmother Diabetes mellitus Social History household members: spouse and family Smoking Status: Current every day smoker Tobacco: How many years used: 20 alcohol intake: current Discharge Plan Discharge Plan Patient Disposition: Home Provider Discharge Comment: You were admitted to the hospital with a low sodium and low potassium level, now improved. Possibly due to pneumonia. Continue antibiotics at home, complete them all after discharge. Please follow up with your primary care provider after discharge. Discharge orders & Medications Prescriptions: New amoxicillin-pot clavulanate 875-125 mg tablet 1 tab PO BID 5 Days Qty: 10 0RF metoprolol tartrate 50 mg tablet 50 mg PO DAILY 30 Days Qty: 30 0RF Continued metformin 500 mg tablet extended release 24 hr See Rx Instructions .ROUTE .COMPLEX Qty: 360 3RF Dose Instruction: TAKE 2 TABLETS TWICE A DAY Rx Instructions: TAKE 2 TABLETS TWICE A DAY Discontinued metoprolol ta-hydrochlorothiaz 50-25 mg tablet See Rx Instructions .ROUTE .COMPLEX Qty: 90 3RF Dose Instruction: TAKE 1 TABLET DAILY Rx Instructions: TAKE 1 TABLET DAILY No Action cholecalciferol (vitamin D3) 125 mcg (5,000 unit) capsule 125 mcg PO DAILY Qty: 30 0RF Follow up/Referrals: Federico Menchaca DO [Primary Care Provider] - Diet/Activity/Treatments Diet: Diet as Tolerated and Regular Activity: As tolerated Visit Report/Discharge Packet Stand Alone Forms: Patient Portal/API, Stroke Signs & Symptoms Discharge Data Primary Care Provider: Federico Menchaca VTE Deep Vein Thrombosis/Pulmonary Embolism Present on Admission: No
--- NOTE | 2024-04-15 16:34 | PC.NURSE ---
Discharge Note Patient A&O, VSS, RA, no complaints of pain/discomfort. Discharge packet reviewed with patient, all questions/concerns addressed. PIV/TELE discontinued. Patient able to dress self and pack all belongings. Patient taken via wheelchair to POV.
== END 2024-04-15 16:30 | disposition home or self-care (01) | DRG 194 ==
LOC: ED 04-14 01:08 → AC 04-14 01:12
PROVIDERS: Internal Medicine; Admitting Provider Internal Medicine; Emergency Provider Emergency Medicine; PCP Family Medicine; Referring Provider Emergency Medicine; Visit Provider Internal Medicine
DX: J15.9 Unspecified bacterial pneumonia (principal); E87.1 Hypo-osmolality and hyponatremia; N39.0 Urinary tract infection, site not specified; R00.0 Tachycardia, unspecified; F17.200 Nicotine dependence, unspecified, uncomplicated; M79.662 Pain in left lower leg; M79.661 Pain in right lower leg; E86.0 Dehydration; E87.6 Hypokalemia; E83.42 Hypomagnesemia; E11.9 Type 2 diabetes mellitus without complications; E86.1 Hypovolemia; I10 Essential (primary) hypertension; Z79.84 Long term (current) use of oral hypoglycemic drugs
CPT/HCPCS: 0241U; 36415; 71046; 80053; 81001; 82962; 83605; 83735; 84100; 85007; 85025; 87040; 93005; 96361; 96365; 96367; 96368; 96375; 99284; 99291; J0696; J1644; J1815; J1885; J3475

== ENCOUNTER → 2024-04-25 14:10 | Outpatient (CLI) | payer MEDICARE, OTHER, SELFPAY ==
[2024-04-25 12:57] VITALS: BMI 19.3
[2024-04-25 15:16] LABS: Add Manual Diff / Slide Review NO; Basophils Absolute Auto 100 /uL (0-100); Basophils Percent Auto 1.2 % (0-2); Eosinophils Absolute Auto 200 /uL (0-450); Eosinophils Percent Auto 1.7 % (2-4); Hematocrit 41.8 % (36-46); Hemoglobin 14.1 g/dL (12.0-16.0); Lymphocytes Absolute Auto 3100 /uL (1100-4500); Lymphocytes Percent Auto 29.1 % (25-40); Mean Corpuscular HGB Conc 33.7 % (30-36); Mean Corpuscular Volume 95.2 fL (80-100); Monocytes Absolute Auto 300 /uL (0-900); Monocytes Percent Auto 2.5 % (3-14); Neutrophils Absolute Auto 7100 /uL (1500-7000); Neutrophils Percent Auto 65.5 % (50-75); Platelet Count 817 X10^3/uL (150-400); Red Cell Distribution Width 13.4 % (11.6-14.8); White Blood Cell Count 10.8 X10^3/uL (4.5-11.0)
[2024-04-25 15:25] LABS: Hemoglobin A1C% w Est Avg Glu 7.2 % (4.0-6.0)
[2024-04-25 15:45] LABS: Anisocytosis 1+
[2024-04-25 15:48] LABS: Alanine Aminotransferase 41 IU/L (<35); Albumin 4.3 g/dL (3.5-5.0); Albumin Globulin Ratio 1.5 (1.0-2.8); Alkaline Phosphatase 121 U/L (38-126); Aspartate Aminotransferase 24 IU/L (14-36); BUN Creatinine Ratio 19.3 (6-22); Bilirubin Total 0.4 mg/dL (0.2-1.3); Blood Urea Nitrogen 11 mg/dL (7-17); Calcium 9.8 mg/dL (8.4-10.2); Carbon Dioxide 28 mmol/L (22-32); Chloride 99 mmol/L (98-107); Estimated Glomerular Filt Rate > 60 mL/min (>60); Globulin 2.9 g/dL (1.7-4.1); Glucose 140 mg/dL (80-110); HEMOLYSIS < 15 (0-50); Sodium 134 mmol/L (137-145); Total Protein 7.2 g/dL (6.3-8.2)
[2024-04-25 16:35] LABS: Vitamin D 25 Hydroxy (D3) 45.7 ng/mL (30.0-100.0)
== END ==
LOC: LAB 14:13
PROVIDERS: PCP Family Medicine; Referring Provider Family Medicine; Visit Provider Family Medicine
DX: E83.42 Hypomagnesemia (principal); E11.9 Type 2 diabetes mellitus without complications; E55.9 Vitamin D deficiency, unspecified; E87.6 Hypokalemia
CPT/HCPCS: 36415; 80053; 82306; 83036; 85025

== ENCOUNTER → 2024-05-07 15:11 | Outpatient (CLI) | payer MEDICARE, OTHER, SELFPAY ==
[2024-04-25 12:57] VITALS: BMI 19.3
--- NOTE | 2024-05-07 15:12 | DI.MG.S_ITS ---
BILATERAL DIGITAL SCREENING MAMMOGRAM 3D/2D WITH CAD: 05/07/2024 CLINICAL: Routine screening. Family history of breast cancer. Comparison is made to exams dated: 05/02/2023 mammogram, 04/28/2022 mammogram, 04/21/2021 mammogram, and 04/20/2020 mammogram - [facility]. There are scattered areas of fibroglandular density (category b / 25%-50% glandular tissue). Current study was also evaluated with a Computer Aided Detection (CAD) system. No significant masses, calcifications, or other findings are seen in either breast. There has been no significant interval change. IMPRESSION: NEGATIVE There is no mammographic evidence of malignancy. A 1 year screening mammogram is recommended. Based on the Tyrer Cuzick model (a risk assessment model) the patient's lifetime risk is 8.5% and her 10 year risk is 4.8%. According to the ACR, ACS, and NCCN guidelines, an annual breast MRI exam along with mammogram is recommended if the patient's lifetime risk is 20% or greater. This exam was interpreted at Station ID: [id number]. NOTE: For mammograms, a report in lay terms will be sent to the patient. Approximately 15% of breast malignancies will not be visualized mammographically. In the management of a palpable breast mass, a negative mammogram must not discourage biopsy of a clinically suspicious lesion. Electronically Signed By: Dave nova/andrew:05/08/2024 17:34:07 letter sent: Normal Exam ACR BI-RADS Category 1: Negative
== END ==
PROVIDERS: PCP Family Medicine; Referring Provider Family Medicine; Visit Provider Family Medicine
DX: Z12.31 Encounter for screening mammogram for malignant neoplasm of breast (principal); Z80.3 Family history of malignant neoplasm of breast
CPT/HCPCS: 77063; 77067

== ENCOUNTER → 2024-07-10 15:57 | Outpatient (CLI) | payer MEDICARE, OTHER, SELFPAY ==
[2024-04-25 12:57] VITALS: BMI 19.3
--- NOTE | 2024-07-10 15:58 | DI.RAD.S_ITS ---
PROCEDURE: XR CHEST 2V INDICATIONS: Cough TECHNIQUE: 2 views of the chest were acquired. COMPARISON: [facility], CR, XR CHEST 2V, 04/13/2024, 22:25. FINDINGS: Surgical changes and devices: None. Lungs and pleura: Hazy opacity of the lingula, seen on frontal view only. Nodular opacity in the right upper lobe. Mediastinum: Mediastinal contours are normal. Heart size is normal. Bones and chest wall: No suspicious bony abnormalities. Soft tissues appear unremarkable. IMPRESSION: Nodular opacity in the right upper lobe, suggestive of infectious or inflammatory bronchiolitis. Recommend follow-up in 1-2 months with chest x-ray to ensure resolution. Hazy opacity in the lingula, seen on frontal view only. Findings probably represent atelectasis. Dictated by: Enrique Goodman M.D. on 07/10/2024 at 16:51 Approved by: Enrique Goodman M.D. on 07/10/2024 at 16:52
== END ==
PROVIDERS: PCP Family Medicine; Referring Provider Nurse Practitioner Family; Visit Provider Nurse Practitioner Family
DX: R05.9 Cough, unspecified (principal)
CPT/HCPCS: 71046

== ENCOUNTER → 2024-07-13 09:44 | Outpatient (CLI) | payer MEDICARE, OTHER, SELFPAY ==
[2024-04-25 12:57] VITALS: BMI 19.3
== END ==
PROVIDERS: PCP Family Medicine; Visit Provider Nurse Practitioner Family
DX: R30.0 Dysuria (principal)
CPT/HCPCS: 87086

== ENCOUNTER → 2024-10-02 14:37 | Outpatient (CLI) | payer MEDICARE, OTHER, SELFPAY ==
[2024-04-25 12:57] VITALS: BMI 19.3
[2024-10-02 15:29] LABS: Add Manual Diff / Slide Review NO; Basophils Absolute Auto 100 /uL (0-100); Basophils Percent Auto 0.9 % (0-2); Eosinophils Absolute Auto 200 /uL (0-450); Eosinophils Percent Auto 2.8 % (2-4); Hematocrit 42.4 % (36-46); Hemoglobin 14.6 g/dL (12.0-16.0); Lymphocytes Absolute Auto 2200 /uL (1100-4500); Lymphocytes Percent Auto 38.5 % (25-40); Mean Corpuscular HGB Conc 34.4 % (30-36); Mean Corpuscular Hemoglobin 31.8 PG (26-34); Mean Corpuscular Volume 92.3 fL (80-100); Monocytes Absolute Auto 400 /uL (0-900); Monocytes Percent Auto 6.6 % (3-14); Neutrophils Absolute Auto 2900 /uL (1500-7000); Neutrophils Percent Auto 51.2 % (50-75); Platelet Count 267 X10^3/uL (150-400); Red Blood Cell Count 4.59 X10^6/uL (4.0-5.2); Red Cell Distribution Width 14.4 % (11.6-14.8); White Blood Cell Count 5.7 X10^3/uL (4.5-11.0)
[2024-10-02 15:47] LABS: Creatinine Urine Random 98.38 mg/dL
[2024-10-02 15:52] LABS: Microalbumin Urine Random 3.4 mg/dL (0-1.6)
[2024-10-02 15:53] LABS: Hemoglobin A1C% w Est Avg Glu 6.6 % (4.0-6.0)
[2024-10-02 16:28] LABS: Alanine Aminotransferase 17 IU/L (<35); Albumin 4.4 g/dL (3.5-5.0); Albumin Globulin Ratio 1.8 (1.0-2.8); Alkaline Phosphatase 75 U/L (38-126); Aspartate Aminotransferase 22 IU/L (14-36); Bilirubin Total 0.6 mg/dL (0.2-1.3); Blood Urea Nitrogen 15 mg/dL (7-17); Calcium 9.6 mg/dL (8.4-10.2); Carbon Dioxide 26 mmol/L (22-32); Chloride 100 mmol/L (98-107); Cholesterol 207 mg/dL (140-199); Estimated Glomerular Filt Rate > 60 mL/min (>60); Globulin 2.4 g/dL (1.7-4.1); Glucose 121 mg/dL (70-99); HDL Cholesterol 81 mg/dL (40-60); HEMOLYSIS < 15 (0-50); LDL Cholesterol Calculated 104 mg/dL (<100); Potassium 4.4 mmol/L (3.4-5.1); Sodium 133 mmol/L (137-145); Total Protein 6.8 g/dL (6.3-8.2); Triglycerides 112 mg/dL (35-150)
== END ==
PROVIDERS: PCP Family Medicine; Referring Provider Family Medicine; Visit Provider Family Medicine
DX: E11.9 Type 2 diabetes mellitus without complications (principal); E78.2 Mixed hyperlipidemia
CPT/HCPCS: 36415; 80053; 80061; 82043; 82570; 83036; 85025